=== PATIENT | female | born 1975 | race Caucasian/White ===

== ENCOUNTER → 2016-08-14 | Outpatient (CLI) | payer OTHER ==
[~2016-08-14] VITALS: Ht 157.5 cm; Wt 84.8 kg
[2016-08-14] VITALS (10 sets, daily range): BP systolic 96–142; BP diastolic 55–73
[~2016-08-14] MED LIST: CETI10TA22 PO; DASA100T PO; TRIA16.96 NS
[2016-08-14 07:49] LABS: HEMATOCRIT 18.1 % (36.0-47.0); HEMOGLOBIN 5.6 g/dL (12.0-15.5)
== END | disposition home or self-care (01) ==
LOC: OPS 06:40
PROVIDERS: ATTEND Physician Assistant Medical
DX: D64.9 Anemia, unspecified (principal); C92.10 Chronic myeloid leukemia, BCR/ABL-positive, not having achieved remission; R53.83 Other fatigue
CPT/HCPCS: 36415; 82947; 85014; 85018; 86850; 86900; 86901; 86920; P9016; 36430

== ENCOUNTER 2016-09-10 10:26 | Inpatient (IN) | payer OTHER ==
[~2016-09-10] VITALS: Ht 157.5 cm; Wt 81.8 kg
[2016-09-10] VITALS (13 sets, daily range): BP systolic 115–152; BP diastolic 54–76
[2016-09-10 12:09] LABS: BASO % 1 % (0-3); EOS % 2 % (0-3); LYMPH # 1.5 x10^3/uL (1.0-4.8); LYMPH % 32 % (24-48); MEAN CORPUSCULAR HEMOGLOBIN 27 pg (25-35); MEAN CORPUSCULAR HGB CONC 33 g/dL (31-37); MEAN CORPUSCULAR VOLUME 82 fL (79-100); MONO % 5 % (0-9); NEUT % 61 % (31-73); PLATELET COUNT 260 x10^3/uL (140-400); RED BLOOD COUNT 1.95 x10^6/uL (3.50-5.40); RED CELL DISTRIBUTION WIDTH 16.7 % (11.5-14.5); WHITE BLOOD COUNT 4.9 x10^3/uL (4.0-11.0)
[2016-09-10 12:10] LABS: HEMATOCRIT 15.9 % (36.0-47.0); HEMOGLOBIN 5.3 g/dL (12.0-15.5)
[2016-09-10] MEDS ORDERED: fentaNYL PF VIAL 100 MCG/2 ML VIAL IV PRN (12:15)
[2016-09-10] MEDS ORDERED: ONDANSETRON PF 4 MG/2 ML VIAL. IV PRN (12:15)
[2016-09-10 12:17] LABS: INR 0.9 (0.8-1.1); PROTHROMBIN TIME PATIENT 11.6 SEC (11.7-14.0)
--- NOTE | 2016-09-10 12:28 | PHYS DOC ---
Past Medical History Past Medical History: Uterine Fibroids, Other Additional Past Medical Histor: CML Past Surgical History: Other Additional Past Surgical Histo: bone marrow biopsies Alcohol Use: None Drug Use: None Adult General Chief Complaint Chief Complaint: ABNORMAL LABS HPI HPI Patient is a 41 year old female presenting to the emergency department for evaluation of anemia that was checked this morning. He follows with Dr. Castellano for her CML. Patient is being seen by a keno writer/runner for vaginal bleeding and they're considering a hysterectomy. She says that she is dizzy and gets short of breath on exertion but denies any definite pain. Review of Systems Review of Systems Constitutional: Denies fever or chills [] Eyes: Denies change in visual acuity, redness, or eye pain [] HENT: Denies nasal congestion or sore throat [] Respiratory: Denies cough. + shortness of breath [] Cardiovascular: No additional information not addressed in HPI [] GI: Denies abdominal pain, nausea, vomiting, bloody stools or diarrhea [] : Denies dysuria or hematuria [] Musculoskeletal: Denies back pain or joint pain [] Integument: Denies rash or skin lesions [] Neurologic: Denies headache, focal weakness. + sensory changes [] Current Medications Current Medications Current Medications Medications (Trade) Dose Ordered Sig/Luisa Start Time Stop Time Status Last Admin Dose Admin Fentanyl Citrate (Fentanyl 2ml Vial) 50 mcg PRN Q2HR PRN 09/10/16 12:15 09/11/16 12:14 Ondansetron HCl (Zofran) 4 mg PRN Q8HRS PRN 09/10/16 12:15 09/11/16 12:14 Allergies Allergies Allergies Coded Allergies Type Severity Reaction Last Updated Verified No Known Drug Allergies 08/14/16 No Physical Exam Physical Exam Constitutional: Well developed, well nourished, no acute distress, non-toxic appearance. [] HENT: Normocephalic, atraumatic, bilateral external ears normal, oropharynx moist, no oral exudates, nose normal. [] Eyes: PERRLA, EOMI, conjunctiva normal, no discharge. [] Neck: Normal range of motion, no tenderness, supple, no stridor. [] Cardiovascular:Heart rate tachycardic with regular rhythm, no murmur [] Lungs & Thorax: Bilateral breath sounds clear to auscultation [] Abdomen: Bowel sounds normal, soft, no tenderness, no masses, no pulsatile masses. [] Skin: Warm, dry, no erythema, no rash. [] Back: No tenderness, no CVA tenderness. [] Extremities: No tenderness, no cyanosis, no clubbing, ROM intact, no edema. [] Neurologic: Alert and oriented X 3, normal motor function, normal sensory function, no focal deficits noted. [] Current Patient Data Vital Signs Vital Signs Date Time Temp Pulse Resp B/P (MAP) Pulse Ox O2 Delivery O2 Flow Rate FiO2 09/10/16 10:58 98.5 108 24 127/60 (82) 100 Room Air 98.5 Lab Values Laboratory Tests Test 09/10/16 11:55 White Blood Count 4.9 x10^3/uL (4.0-11.0) Red Blood Count 1.95 x10^6/uL (3.50-5.40) L Hemoglobin 5.3 g/dL (12.0-15.5) *L Hematocrit 15.9 % (36.0-47.0) *L Mean Corpuscular Volume 82 fL (79-100) Mean Corpuscular Hemoglobin 27 pg (25-35) Mean Corpuscular Hemoglobin Concent 33 g/dL (31-37) Red Cell Distribution Width 16.7 % (11.5-14.5) H Platelet Count 260 x10^3/uL (140-400) Neutrophils (%) (Auto) 61 % (31-73) Lymphocytes (%) (Auto) 32 % (24-48) Monocytes (%) (Auto) 5 % (0-9) Eosinophils (%) (Auto) 2 % (0-3) Basophils (%) (Auto) 1 % (0-3) Neutrophils # (Auto) 3.0 x10^3uL (1.8-7.7) Lymphocytes # (Auto) 1.5 x10^3/uL (1.0-4.8) Monocytes # (Auto) 0.3 x10^3/uL (0.0-1.1) Eosinophils # (Auto) 0.1 x10^3/uL (0.0-0.7) Basophils # (Auto) 0.0 x10^3/uL (0.0-0.2) Prothrombin Time 11.6 SEC (11.7-14.0) L Prothrombin Time INR 0.9 (0.8-1.1) PTT 31 SEC (24-38) Laboratory Tests 09/10/16 11:55 EKG EKG [] Radiology/Procedures Radiology/Procedures [] Course & Med Decision Making Course & Med Decision Making Patient with anemia from her underlying medical condition and possibly bleeding as well so she'll be admitted for transfusion and further evaluation and treatment. Dragon Disclaimer Dragon Disclaimer This electronic medical record was generated, in whole or in part, using a voice recognition dictation system. Departure Departure Impression: Primary Impression: Symptomatic anemia Additional Impressions: Tachycardia Dizziness REAL (dyspnea on exertion) Disposition: ADMITTED INPATIENT Admitting Physician: Jovana Pierre Condition: STABLE Referrals: ANALI DUNCAN (PCP) Problem Qualifiers DELORIS BETH DO September 10, 2016 12:28
[2016-09-10 12:30] LABS: CALCIUM 8.4 mg/dL (8.5-10.1); CREATININE 0.8 mg/dL (0.6-1.0); GFR 78.7; POTASSIUM 3.5 mmol/L (3.5-5.1)
[2016-09-10 12:37] LABS: ALBUMIN 3.3 g/dL (3.4-5.0); ALBUMIN/GLOBULIN RATIO 0.8 (1.0-1.7); TOTAL BILIRUBIN 0.2 mg/dL (0.2-1.0); TOTAL PROTEIN 7.4 g/dL (6.4-8.2)
[2016-09-10 14:02] LABS: % SAT IRON 3 % (15-34); IRON,SERUM 13 ug/dL (50-170)
[2016-09-10 14:39] LABS: FOLATE 9.58 ng/ml (3.2-20.0)
--- NOTE | 2016-09-10 16:05 | PDOC1 ---
History and Physical Date of Admission Date of Admission DATE: 09/10/16 TIME: 16:00 History of Present Illness History of Present Illness Ms. Joel is a 41 year old [address] by Dr. Castellano clinic to ER, for evaluation of anemia, has CML, routine labs and Hgb much worse today. She follows with Dr. Castellano for her CML. she is more dyspneic with exertion, having trouble with stairs and feels weak. She also has more pale skin that she has noticed. prior admit for anemia and given 2 u PRBC with good improvement Past Medical History Cardiovascular: No pertinent hx Pulmonary: No pertinent hx GI: No pertinent hx Heme/Onc: Anemia NOS, Cancer Renal/: Other Family History Family History: Hypertension Social History Smoke: No ALCOHOL: none Drugs: None Current Problem List Problem List Problems Medical Problems: (1) Dizziness Status: Acute (2) REAL (dyspnea on exertion) Status: Acute (3) Symptomatic anemia Status: Acute (4) Tachycardia Status: Acute Problems: Current Medications Current Medications Current Medications Ondansetron HCl (Zofran) 4 mg PRN Q8HRS PRN IV NAUSEA/VOMITING; Start 09/10/16 at 12:15; Stop 09/11/16 at 12:14 Fentanyl Citrate (Fentanyl 2ml Vial) 50 mcg PRN Q2HR PRN IV PAIN; Start at 12:15; Stop 09/11/16 at 12:14 Active Scripts Active Reported Nasal Allergy (Triamcinolone Acetonide) 16.9 Ml [facility] 16.9 Ml NS Zyrtec (Cetirizine Hcl) 10 Mg Tablet 1 Tab PO DAILY Sprycel (Dasatinib) 100 Mg Tablet 100 Mg PO DAILY Allergies Allergies: Coded Allergies: No Known Drug Allergies (Unverified , 08/14/16) ROS General: No: Chills, Night Sweats, Fatigue, Malaise, Appetite, Other PSYCHOLOGICAL ROS: No: Anxiety, Behavioral Disorder, Concentration difficultie , Decreased libido, Depression, Disorientation, Hallucinations, Hostility, Irritablity, Memory difficulties, Mood Swings, Obsessive thoughts, Physical abuse, Sexual abuse, Sleep disturbances, Suicidal ideation, Other HEENT: No: Heacaches, Visual Changes, Hearing change, Nasal congestion, Nasal discharge, Oral lesions, Sinus pain, Sore Throat, Epistaxis, Sneezing, Snoring, Tinnitus, Vertigo, Vocal changes, Other Respiratory: No: Cough, Hemoptysis, Orthopnea, Pleuritic Pain, Shortness of breath, SOB with excertion, Sputum Changes, Stridor, Tachypnea, Wheezing, Other Cardiovascular: No Chest Pain, No Palpitations, No Orthopnea, No Paroxysmal Noc. Dyspnea, No Edema, No Lt Headedness, No Other Genitourinary: No Dysuria, No Frequency, No Incontinence, No Hematuria, No Retention, No Discharge, No Urgency, No Pain, No Flank Pain, No Other, No , No , No , No , No , No , No Musculoskeletal: No Gait Disturbance, No Joint Pain, No Joint Stiffness, No Joint Swelling, No Muscle Pain, No Muscular Weakness, No Pain In:, No Swelling In:, No Other Neurological: No Behavorial Changes, No Bowel/Bladder ControlChng, No Confusion , No Dizziness, No Gait Disturbance, No Headaches, No Impaired Coord/balance, No Memory Loss, No Numbness/Tingling, No Seizures, No Speech Problems, No Tremors, No Visual Changes, No Weakness, No Other Skin: No Dry Skin, No Eczema, No Hair Changes, No Lumps, No Mole Changes, No Mottling, No Nail Changes, No Pruritus, No Rash, No Skin Lesion Changes, No Other, No Acne Physical Exam General: Alert, Oriented X3, Cooperative, No acute distress HEENT: Atraumatic, PERRLA, EOMI, Mucous membr. moist/pink Lungs: Clear to auscultation, Normal air movement Heart: no gallops, no murmurs Abdomen: Normal bowel sounds, Soft Rectal Exam: not examined Extremities: No clubbing Skin: Other (pale) Neuro: Normal tone, Sensation intact Psych/Mental Status: Mood NL Vitals Vitals Vital Signs Date Time Temp Pulse Resp B/P (MAP) Pulse Ox O2 Delivery O2 Flow Rate FiO2 09/10/16 15:12 98.2 98 17 133/68 (89) 98 Room Air 98.2 Labs Labs Laboratory Tests Test 09/10/16 11:55 White Blood Count 4.9 x10^3/uL (4.0-11.0) Red Blood Count 1.95 x10^6/uL (3.50-5.40) Hemoglobin 5.3 g/dL (12.0-15.5) Hematocrit 15.9 % (36.0-47.0) Mean Corpuscular Volume 82 fL (79-100) Mean Corpuscular Hemoglobin 27 pg (25-35) Mean Corpuscular Hemoglobin Concent 33 g/dL (31-37) Red Cell Distribution Width 16.7 % (11.5-14.5) Platelet Count 260 x10^3/uL (140-400) Neutrophils (%) (Auto) 61 % (31-73) Lymphocytes (%) (Auto) 32 % (24-48) Monocytes (%) (Auto) 5 % (0-9) Eosinophils (%) (Auto) 2 % (0-3) Basophils (%) (Auto) 1 % (0-3) Neutrophils # (Auto) 3.0 x10^3uL (1.8-7.7) Lymphocytes # (Auto) 1.5 x10^3/uL (1.0-4.8) Monocytes # (Auto) 0.3 x10^3/uL (0.0-1.1) Eosinophils # (Auto) 0.1 x10^3/uL (0.0-0.7) Basophils # (Auto) 0.0 x10^3/uL (0.0-0.2) Prothrombin Time 11.6 SEC (11.7-14.0) Prothromb Time International Ratio 0.9 (0.8-1.1) Activated Partial Thromboplast Time 31 SEC (24-38) Sodium Level 140 mmol/L (136-145) Potassium Level 3.5 mmol/L (3.5-5.1) Chloride Level 106 mmol/L (98-107) Carbon Dioxide Level 23 mmol/L (21-32) Anion Gap 11 (6-14) Blood Urea Nitrogen 5 mg/dL (7-20) Creatinine 0.8 mg/dL (0.6-1.0) Estimated GFR (Cockcroft-Gault) 78.7 BUN/Creatinine Ratio 6 (6-20) Glucose Level 106 mg/dL (70-99) Calcium Level 8.4 mg/dL (8.5-10.1) Iron Level 13 ug/dL (50-170) Total Iron Binding Capacity 450 ug/dL (250-450) Iron Saturation 3 % (15-34) Ferritin 6 ng/mL (8-252) Total Bilirubin 0.2 mg/dL (0.2-1.0) Aspartate Amino Transf (AST/SGOT) 20 U/L (15-37) Alanine Aminotransferase (ALT/SGPT) 18 U/L (14-59) Alkaline Phosphatase 58 U/L (46-116) Total Protein 7.4 g/dL (6.4-8.2) Albumin 3.3 g/dL (3.4-5.0) Albumin/Globulin Ratio 0.8 (1.0-1.7) Vitamin B12 Level 244 pg/mL (247-911) Serum Folate 9.58 ng/ml (3.2-20.0) Thyroid Stimulating Hormone (TSH) 3.421 uIU/mL (0.358-3.74) Laboratory Tests Test 09/10/16 11:55 White Blood Count 4.9 x10^3/uL (4.0-11.0) Red Blood Count 1.95 x10^6/uL (3.50-5.40) Hemoglobin 5.3 g/dL (12.0-15.5) Hematocrit 15.9 % (36.0-47.0) Mean Corpuscular Volume 82 fL (79-100) Mean Corpuscular Hemoglobin 27 pg (25-35) Mean Corpuscular Hemoglobin Concent 33 g/dL (31-37) Red Cell Distribution Width 16.7 % (11.5-14.5) Platelet Count 260 x10^3/uL (140-400) Neutrophils (%) (Auto) 61 % (31-73) Lymphocytes (%) (Auto) 32 % (24-48) Monocytes (%) (Auto) 5 % (0-9) Eosinophils (%) (Auto) 2 % (0-3) Basophils (%) (Auto) 1 % (0-3) Neutrophils # (Auto) 3.0 x10^3uL (1.8-7.7) Lymphocytes # (Auto) 1.5 x10^3/uL (1.0-4.8) Monocytes # (Auto) 0.3 x10^3/uL (0.0-1.1) Eosinophils # (Auto) 0.1 x10^3/uL (0.0-0.7) Basophils # (Auto) 0.0 x10^3/uL (0.0-0.2) Prothrombin Time 11.6 SEC (11.7-14.0) Prothromb Time International Ratio 0.9 (0.8-1.1) Activated Partial Thromboplast Time 31 SEC (24-38) Sodium Level 140 mmol/L (136-145) Potassium Level 3.5 mmol/L (3.5-5.1) Chloride Level 106 mmol/L (98-107) Carbon Dioxide Level 23 mmol/L (21-32) Anion Gap 11 (6-14) Blood Urea Nitrogen 5 mg/dL (7-20) Creatinine 0.8 mg/dL (0.6-1.0) Estimated GFR (Cockcroft-Gault) 78.7 BUN/Creatinine Ratio 6 (6-20) Glucose Level 106 mg/dL (70-99) Calcium Level 8.4 mg/dL (8.5-10.1) Iron Level 13 ug/dL (50-170) Total Iron Binding Capacity 450 ug/dL (250-450) Iron Saturation 3 % (15-34) Ferritin 6 ng/mL (8-252) Total Bilirubin 0.2 mg/dL (0.2-1.0) Aspartate Amino Transf (AST/SGOT) 20 U/L (15-37) Alanine Aminotransferase (ALT/SGPT) 18 U/L (14-59) Alkaline Phosphatase 58 U/L (46-116) Total Protein 7.4 g/dL (6.4-8.2) Albumin 3.3 g/dL (3.4-5.0) Albumin/Globulin Ratio 0.8 (1.0-1.7) Vitamin B12 Level 244 pg/mL (247-911) Serum Folate 9.58 ng/ml (3.2-20.0) Thyroid Stimulating Hormone (TSH) 3.421 uIU/mL (0.358-3.74) VTE Prophylaxis Ordered VTE Prophylaxis Devices: No VTE Pharmacological Prophylaxi: No Assessment/Plan Assessment/Plan symptomatic anemia Hgb 5.3 today CML uterine fibroids plan 2 u PRBC the, recheck, consider third, goal > 8 she reports she feels well near hgb 10 consult Shipping And Receiving Associate, consider surg intervention for heavy menses VEL NAVAS MD September 10, 2016 16:05
--- NOTE | 2016-09-10 16:40 | PDOC ---
Provider Note Provider Note Hem-Onc consult 1. CML - continue sprycel 2. Iron def anemia due to menorrhagia- ordered venofer. Agree to transfuse till Hb >8. 3. B12 def- ordered B12. see dictation [id number] LOS OROZCO MD September 10, 2016 16:40
[2016-09-10] MEDS ORDERED: IRON SUCROSE COMPLEX 500 MG in IV NORMAL SALINE 250ML 250 ML IV ONE (17:00)
[2016-09-10] MEDS: CYANOCOBALAMIN (VITAMIN B-12) 1,000 MCG/ML VIAL IM SCH (21:46)
--- NOTE | 2016-09-11 02:42 | CONS ---
DATE OF CONSULTATION: 09/10/2016 REQUESTING PHYSICIAN: Jovana Pierre MD REASON FOR CONSULTATION: CML and severe anemia. HISTORY OF PRESENT ILLNESS: The patient is a 41-year-old female who was diagnosed with CML on 01/06/2013. She was started on Gleevec on 01/29/2013 and she had nausea and vomiting on a chronic basis and hence this was discontinued and Sprycel was initiated on 01/20/2015 at 100 mg daily and her GI symptoms resolved. She has been having heavy menstrual cycles and she has been seen wash rack operator Dr. Sonali Dias. She received blood transfusion in 07/2016. She had a routine CBC done on 09/10/2016 that revealed hemoglobin of 5.3 and hence she was advised to go to the hospital for further evaluation. She reports menorrhagia. No hematemesis, melena or hematochezia. No hemoptysis or hematuria. No nose bleeds or gum bleeding. No history of easy bruisability. No loss of weight or loss of appetite. She does feel dizzy and lightheaded. She has noticed worsening fatigue and exertional dyspnea, but no chest pain. PAST MEDICAL HISTORY: CML, iron deficiency anemia, and fibroid uterus. FAMILY HISTORY: Positive for hypertension. SOCIAL HISTORY: No smoking or alcohol abuse. REVIEW OF SYSTEMS: A 14-point review of systems was performed. Pertinent positives are mentioned in the history of present illness. Rest of the system review is negative. PHYSICAL EXAMINATION: GENERAL APPEARANCE: The patient is a 41-year-old female who is in no acute cardiorespiratory distress. VITAL SIGNS: Blood pressure 133/68, temperature 98.2. HEENT: Atraumatic, normocephalic. Eyes: No icterus. NECK: Supple. CHEST: Bilaterally symmetrical. No crepitations or rhonchi heard. HEART: S1, S2 normal. ABDOMEN: Soft, nontender. CENTRAL NERVOUS SYSTEM: No focal deficits. LYMPHATICS: No lymphadenopathy. SKIN: No rashes. PSYCHOLOGIC: Mood and affect are appropriate. MUSCULOSKELETAL: No joint effusions. LABORATORY DATA: WBC 4.9, hemoglobin 5.3, and platelet count 260. MCV 82, calcium 8.4, iron 13, TIBC 450, iron saturation 3, ferritin 6 on 09/10/2016, B12 244 on 09/10/2016. IMPRESSION AND PLAN: 1. Chronic myeloid leukemia; she is on Sprycel 100 mg a day and she has responded very well, continue Sprycel 100 mg a day. 2. Anemia, secondary to iron deficiency anemia due to menorrhagia from fibroid uterus. I will start on Venofer. I will give her one dose 500 mg intravenous today for management of iron deficiency anemia. I have advised her to consult her wash rack operator for management of fibroid uterus. I agreed to transfuse 2 units of PRBCs and check CBC after that and if still below 8, then I would proceed with third unit of transfusion. 3. B12 deficiency, B12 only 244 on 09/10/2016. I will give her a dose of vitamin B12 1000 mcg intramuscular. I discussed with the registered nurse. LOS OROZCO MD DR: SUSIE/delmer JOB#: [id number] / [id number] VIGNESH
[2016-09-11 03:00] VITALS: BP 112/68
[2016-09-11 04:13] LABS: BASO % 1 % (0-3); EOS % 2 % (0-3); HEMATOCRIT 25.7 % (36.0-47.0); HEMOGLOBIN 8.7 g/dL (12.0-15.5); LYMPH % 29 % (24-48); MEAN CORPUSCULAR HEMOGLOBIN 27 pg (25-35); MEAN CORPUSCULAR HGB CONC 34 g/dL (31-37); MEAN CORPUSCULAR VOLUME 80 fL (79-100); MONO % 4 % (0-9); NEUT % 64 % (31-73); PLATELET COUNT 236 x10^3/uL (140-400); RED CELL DISTRIBUTION WIDTH 16.4 % (11.5-14.5); WHITE BLOOD COUNT 6.9 x10^3/uL (4.0-11.0)
[2016-09-11 04:43] LABS: CALCIUM 8.2 mg/dL (8.5-10.1); CREATININE 0.8 mg/dL (0.6-1.0); GFR 78.7; POTASSIUM 3.9 mmol/L (3.5-5.1)
--- NOTE | 2016-09-11 06:00 | ACF ---
Admission Forms Criteria ANEMIA Clinical Indications for Inpatient Care (Place 'X' for any and all applicable criteria) Ongoing inpatient care may be needed for anemia with 1 or more of the following (1)(2)(3)(4)(18)(37): [X]I. Severe signs or symptoms unresponsive to transfusion or volume replacement, including ANY ONE of the following: []a) Heart failure []b) Chest pain []c) Myocardial ischemia [X]d) Exertional dyspnea []e) Syncope []f) Acute peripheral ischemia (eg, pulseless, cool, mottled, or cyanotic extremity) []g) Other severe signs or symptoms []II. Cognitive impairment []III. Active hemorrhage []IV.Active hemolysis with rapidly progressive anemia []V. Hemodynamic instability Extended stay beyond goal length of stay for the primary condition may be needed until ALL of the following are present (1)(2)(3)(4): []a) Hemodynamic stability []b) Any active blood loss controlled []c) Severe signs or symptoms resolved []d) Mental status normal or at baseline []e) Stable hemoglobin after transfusion []f) Any underlying disorder or complications of treatment controlled The original [employer] content created by [employer] has been revised. The portions of the content which have been revised are identified through the use of italic text or in bold, and [facility] has neither reviewed nor approved the modified material. All other unmodified content is copyright [employer]. Please see references footnoted in the original [facility] edition 2016 Admission Criteria Met?: Yes MYRNA BRAMBILA September 11, 2016 06:00
[2016-09-11] MEDS ORDERED: NAPROXEN 500 MG TABLET PO PRN (06:45)
[2016-09-11 07:00] VITALS: BP 115/59
[2016-09-11] MEDS: CYANOCOBALAMIN (VITAMIN B-12) 1,000 MCG/ML VIAL IM SCH (08:14)
--- NOTE | 2016-09-11 08:41 | PDOC ---
PROGRESS NOTES Subjective Subjective c/c - f/u of CML and anemia ROS - fatigue better Objective Objective Vital Signs Date Time Temp Pulse Resp B/P (MAP) Pulse Ox O2 Delivery O2 Flow Rate FiO2 09/11/16 07:00 97.9 86 18 115/59 (77) 98 Room Air 97.9 Intake and Output 09/11/16 07:00 Intake Total 1563 ml Balance 1563 ml Intake Oral 240 ml Blood Product IV Normal Saline Flush 1323 ml # Voids 5 Physical Exam Heart: Normal S1, Normal S2 General: Alert, Oriented X3 Lungs: Clear to auscultation Neuro: Normal speech Psych/Mental Status: Mental status NL Assessment Assessment Problems Medical Problems: (1) Dizziness Status: Acute (2) REAL (dyspnea on exertion) Status: Acute (3) Symptomatic anemia Status: Acute (4) Tachycardia Status: Acute IMPRESSION AND PLAN: 1. Chronic myeloid leukemia; she is on Sprycel 100 mg a day and she has responded very well, continue Sprycel 100 mg a day. 2. Anemia, secondary to iron deficiency anemia due to menorrhagia from fibroid uterus. s/p Venofer 500 mg intravenous 09/10/16 for management of iron deficiency anemia. I have advised her to consult her stone rigger for management of fibroid uterus. s/p 2 units of PRBCs. Hb better at 8.7, hence no need for third unit of transfusion. 3. B12 deficiency, B12 only 244 on 09/10/2016. s/p vitamin B12 1000 mcg intramuscular 09/10/16, plan second dose 09/11/16 and then switch to oral B12 1000 mcg daily.. Comment Review of Relevant I have reviewed the following items laya (where applicable) has been applied. Labs Laboratory Tests Test 09/10/16 11:55 09/11/16 03:55 White Blood Count 4.9 x10^3/uL (4.0-11.0) 6.9 x10^3/uL (4.0-11.0) Red Blood Count 1.95 x10^6/uL (3.50-5.40) 3.20 x10^6/uL (3.50-5.40) Hemoglobin 5.3 g/dL (12.0-15.5) 8.7 g/dL (12.0-15.5) Hematocrit 15.9 % (36.0-47.0) 25.7 % (36.0-47.0) Mean Corpuscular Volume 82 fL (79-100) 80 fL (79-100) Mean Corpuscular Hemoglobin 27 pg (25-35) 27 pg (25-35) Mean Corpuscular Hemoglobin Concent 33 g/dL (31-37) 34 g/dL (31-37) Red Cell Distribution Width 16.7 % (11.5-14.5) 16.4 % (11.5-14.5) Platelet Count 260 x10^3/uL (140-400) 236 x10^3/uL (140-400) Neutrophils (%) (Auto) 61 % (31-73) 64 % (31-73) Lymphocytes (%) (Auto) 32 % (24-48) 29 % (24-48) Monocytes (%) (Auto) 5 % (0-9) 4 % (0-9) Eosinophils (%) (Auto) 2 % (0-3) 2 % (0-3) Basophils (%) (Auto) 1 % (0-3) 1 % (0-3) Neutrophils # (Auto) 3.0 x10^3uL (1.8-7.7) 4.4 x10^3uL (1.8-7.7) Lymphocytes # (Auto) 1.5 x10^3/uL (1.0-4.8) 2.0 x10^3/uL (1.0-4.8) Monocytes # (Auto) 0.3 x10^3/uL (0.0-1.1) 0.3 x10^3/uL (0.0-1.1) Eosinophils # (Auto) 0.1 x10^3/uL (0.0-0.7) 0.1 x10^3/uL (0.0-0.7) Basophils # (Auto) 0.0 x10^3/uL (0.0-0.2) 0.0 x10^3/uL (0.0-0.2) Prothrombin Time 11.6 SEC (11.7-14.0) Prothromb Time International Ratio 0.9 (0.8-1.1) Activated Partial Thromboplast Time 31 SEC (24-38) Sodium Level 140 mmol/L (136-145) 141 mmol/L (136-145) Potassium Level 3.5 mmol/L (3.5-5.1) 3.9 mmol/L (3.5-5.1) Chloride Level 106 mmol/L (98-107) 108 mmol/L (98-107) Carbon Dioxide Level 23 mmol/L (21-32) 21 mmol/L (21-32) Anion Gap 11 (6-14) 12 (6-14) Blood Urea Nitrogen 5 mg/dL (7-20) 8 mg/dL (7-20) Creatinine 0.8 mg/dL (0.6-1.0) 0.8 mg/dL (0.6-1.0) Estimated GFR (Cockcroft-Gault) 78.7 78.7 BUN/Creatinine Ratio 6 (6-20) Glucose Level 106 mg/dL (70-99) 110 mg/dL (70-99) Calcium Level 8.4 mg/dL (8.5-10.1) 8.2 mg/dL (8.5-10.1) Iron Level 13 ug/dL (50-170) Total Iron Binding Capacity 450 ug/dL (250-450) Iron Saturation 3 % (15-34) Ferritin 6 ng/mL (8-252) Total Bilirubin 0.2 mg/dL (0.2-1.0) Aspartate Amino Transf (AST/SGOT) 20 U/L (15-37) Alanine Aminotransferase (ALT/SGPT) 18 U/L (14-59) Alkaline Phosphatase 58 U/L (46-116) Total Protein 7.4 g/dL (6.4-8.2) Albumin 3.3 g/dL (3.4-5.0) Albumin/Globulin Ratio 0.8 (1.0-1.7) Vitamin B12 Level 244 pg/mL (247-911) Serum Folate 9.58 ng/ml (3.2-20.0) Thyroid Stimulating Hormone (TSH) 3.421 uIU/mL (0.358-3.74) Laboratory Tests Test 09/10/16 11:55 09/11/16 03:55 White Blood Count 4.9 x10^3/uL (4.0-11.0) 6.9 x10^3/uL (4.0-11.0) Red Blood Count 1.95 x10^6/uL (3.50-5.40) 3.20 x10^6/uL (3.50-5.40) Hemoglobin 5.3 g/dL (12.0-15.5) 8.7 g/dL (12.0-15.5) Hematocrit 15.9 % (36.0-47.0) 25.7 % (36.0-47.0) Mean Corpuscular Volume 82 fL (79-100) 80 fL (79-100) Mean Corpuscular Hemoglobin 27 pg (25-35) 27 pg (25-35) Mean Corpuscular Hemoglobin Concent 33 g/dL (31-37) 34 g/dL (31-37) Red Cell Distribution Width 16.7 % (11.5-14.5) 16.4 % (11.5-14.5) Platelet Count 260 x10^3/uL (140-400) 236 x10^3/uL (140-400) Neutrophils (%) (Auto) 61 % (31-73) 64 % (31-73) Lymphocytes (%) (Auto) 32 % (24-48) 29 % (24-48) Monocytes (%) (Auto) 5 % (0-9) 4 % (0-9) Eosinophils (%) (Auto) 2 % (0-3) 2 % (0-3) Basophils (%) (Auto) 1 % (0-3) 1 % (0-3) Neutrophils # (Auto) 3.0 x10^3uL (1.8-7.7) 4.4 x10^3uL (1.8-7.7) Lymphocytes # (Auto) 1.5 x10^3/uL (1.0-4.8) 2.0 x10^3/uL (1.0-4.8) Monocytes # (Auto) 0.3 x10^3/uL (0.0-1.1) 0.3 x10^3/uL (0.0-1.1) Eosinophils # (Auto) 0.1 x10^3/uL (0.0-0.7) 0.1 x10^3/uL (0.0-0.7) Basophils # (Auto) 0.0 x10^3/uL (0.0-0.2) 0.0 x10^3/uL (0.0-0.2) Prothrombin Time 11.6 SEC (11.7-14.0) Prothromb Time International Ratio 0.9 (0.8-1.1) Activated Partial Thromboplast Time 31 SEC (24-38) Sodium Level 140 mmol/L (136-145) 141 mmol/L (136-145) Potassium Level 3.5 mmol/L (3.5-5.1) 3.9 mmol/L (3.5-5.1) Chloride Level 106 mmol/L (98-107) 108 mmol/L (98-107) Carbon Dioxide Level 23 mmol/L (21-32) 21 mmol/L (21-32) Anion Gap 11 (6-14) 12 (6-14) Blood Urea Nitrogen 5 mg/dL (7-20) 8 mg/dL (7-20) Creatinine 0.8 mg/dL (0.6-1.0) 0.8 mg/dL (0.6-1.0) Estimated GFR (Cockcroft-Gault) 78.7 78.7 BUN/Creatinine Ratio 6 (6-20) Glucose Level 106 mg/dL (70-99) 110 mg/dL (70-99) Calcium Level 8.4 mg/dL (8.5-10.1) 8.2 mg/dL (8.5-10.1) Iron Level 13 ug/dL (50-170) Total Iron Binding Capacity 450 ug/dL (250-450) Iron Saturation 3 % (15-34) Ferritin 6 ng/mL (8-252) Total Bilirubin 0.2 mg/dL (0.2-1.0) Aspartate Amino Transf (AST/SGOT) 20 U/L (15-37) Alanine Aminotransferase (ALT/SGPT) 18 U/L (14-59) Alkaline Phosphatase 58 U/L (46-116) Total Protein 7.4 g/dL (6.4-8.2) Albumin 3.3 g/dL (3.4-5.0) Albumin/Globulin Ratio 0.8 (1.0-1.7) Vitamin B12 Level 244 pg/mL (247-911) Serum Folate 9.58 ng/ml (3.2-20.0) Thyroid Stimulating Hormone (TSH) 3.421 uIU/mL (0.358-3.74) Medications Current Medications Ondansetron HCl (Zofran) 4 mg PRN Q8HRS PRN IV NAUSEA/VOMITING; Start 09/10/16 at 12:15; Stop 09/11/16 at 12:14 Fentanyl Citrate (Fentanyl 2ml Vial) 50 mcg PRN Q2HR PRN IV PAIN; Start at 12:15; Stop 09/11/16 at 12:14 Iron Sucrose 500 mg/Sodium Chloride 275 ml @ 78.571 mls/ hr 1X ONCE IV Last administered on 09/10/16 22:23; Start 09/10/16 at 17:00; Stop 09/10/16 at 20:29 ; Status DC Cyanocobalamin (Vitamin B-12) 1,000 mcg DAILY IM Last administered on 08:14; Start 09/10/16 at 16:30; Stop 09/11/16 at 16:29 Naproxen (Naprosyn) 500 mg PRN BID PRN PO MODERATE PAIN Last administered on 08:13; Start 09/11/16 at 06:45 Active Scripts Active Reported Nasal Allergy (Triamcinolone Acetonide) 16.9 Ml [place] 16.9 Ml NS Zyrtec (Cetirizine Hcl) 10 Mg Tablet 1 Tab PO DAILY Sprycel (Dasatinib) 100 Mg Tablet 100 Mg PO DAILY Vitals/I & O Vital Sign - Last 24 Hours 09/10/16 09/10/16 09/10/16 09/10/16 10:58 11:27 11:57 12:27 Temp 98.5 98.5 Pulse 108 104 106 100 Resp B/P (MAP) 127/60 (82) 125/59 (81) 130/59 (82) 123/58 (79) Pulse Ox 100 98 97 100 O2 Delivery Room Air Room Air Room Air Room Air 09/10/16 09/10/16 09/10/16 09/10/16 14:19 14:35 14:35 15:12 Temp 97.7 97.9 97.9 98.2 97.7 97.9 97.9 98.2 Pulse 102 98 102 98 Resp B/P (MAP) 115/54 118/64 115/54 (74) 133/68 (89) Pulse Ox 98 O2 Delivery Room Air Room Air 09/10/16 09/10/16 09/10/16 09/10/16 15:35 16:35 17:30 18:43 Temp 98.0 97.8 97.9 98.2 98.0 97.8 97.9 98.2 Pulse 94 93 94 94 Resp 20 20 20 20 B/P (MAP) 128/68 126/65 128/60 128/60 09/10/16 09/10/16 09/10/16 09/10/16 18:59 19:00 20:00 20:00 Temp 98.0 97.7 97.7 98.0 97.7 97.7 Pulse 91 98 98 Resp 20 19 20 B/P (MAP) 122/61 152/71 (98) 152/71 Pulse Ox 97 O2 Delivery Room Air Room Air 09/10/16 09/10/16 09/10/16 09/11/16 21:00 22:50 23:50 03:00 Temp 97.9 98.1 97.9 98.1 Pulse 83 80 88 Resp 16 19 B/P (MAP) 130/76 119/64 (82) 117/65 (82) 112/68 (83) Pulse Ox 95 O2 Delivery Room Air Room Air 09/11/16 07:00 Temp 97.9 97.9 Pulse 86 Resp 18 B/P (MAP) 115/59 (77) Pulse Ox 98 O2 Delivery Room Air Intake and Output 09/10/16 09/10/16 09/11/16 15:00 23:00 07:00 Intake Total 315 ml 1248 ml Balance 315 ml 1248 ml LOS OROZCO MD September 11, 2016 08:41
--- NOTE | 2016-09-11 09:43 | PDOC2 ---
CONSULT Date of Consult Date of Consult DATE: 09/11/16 TIME: 09:36 Reason for Consult Reason for Consult: menorrhagia and subsequent anemia Referring Physician Referring Physician: Gray Identification/Chief Complaint Chief Complaint Pt has bleed down to anemia and presented with hgb of 5 yesterday. Pt was having SOB and increased HR Source Source: Patient History of Present Illness Reason for Visit: Pt was last seen in my office in December. Has been having intermittent problems with menorrhagia. Was seen for US on 08/27/16 and it was noted to show 10cm uterus without fibroids and small ovarian cysts. Pt states she has had heavy bleeding the last couple of months and was coming in for appt tomorrow in office. She is currently on her period, but it is slowed almost to a stop. Feels much better after transfusion. Past Medical History Past Medical History See hx in chart. Pt has CML Cardiovascular: No pertinent hx Pulmonary: No pertinent hx GI: No pertinent hx Heme/Onc: Anemia NOS, Cancer, Iron deficiency Anemia Renal/: Other (menorrhagia, metrorrhagia) Family History Family History non contributory for this problem Family History: Hypertension Social History No ALCOHOL: none Drugs: None Current Problem List Problem List Problems Medical Problems: (1) Dizziness Status: Acute (2) REAL (dyspnea on exertion) Status: Acute (3) Symptomatic anemia Status: Acute (4) Tachycardia Status: Acute Current Medications Current Medications Current Medications Ondansetron HCl (Zofran) 4 mg PRN Q8HRS PRN IV NAUSEA/VOMITING; Start 09/10/16 at 12:15; Stop 09/11/16 at 12:14 Fentanyl Citrate (Fentanyl 2ml Vial) 50 mcg PRN Q2HR PRN IV PAIN; Start at 12:15; Stop 09/11/16 at 12:14 Iron Sucrose 500 mg/Sodium Chloride 275 ml @ 78.571 mls/ hr 1X ONCE IV Last administered on 09/10/16t 22:23; Start 09/10/16 at 17:00; Stop 09/10/16 at 20:29 ; Status DC Cyanocobalamin (Vitamin B-12) 1,000 mcg DAILY IM Last administered on 08:14; Start 09/10/16 at 16:30; Stop 09/11/16 at 16:29 Naproxen (Naprosyn) 500 mg PRN BID PRN PO MODERATE PAIN Last administered on t 08:13; Start 09/11/16 at 06:45 Active Scripts Active Reported Nasal Allergy (Triamcinolone Acetonide) 16.9 Ml [place] 16.9 Ml NS Zyrtec (Cetirizine Hcl) 10 Mg Tablet 1 Tab PO DAILY Sprycel (Dasatinib) 100 Mg Tablet 100 Mg PO DAILY Allergies Allergies: Coded Allergies: No Known Drug Allergies (Unverified , 08/14/16) ROS Genitourinary: YES Other (menorrhagia) Physical Exam General: Alert, Oriented X3, Cooperative, No acute distress Abdomen: Soft, No tenderness Extremities: No clubbing, No cyanosis, No edema Psych/Mental Status: Mental status NL Vitals VITALS Vital Signs Date Time Temp Pulse Resp B/P (MAP) Pulse Ox O2 Delivery O2 Flow Rate FiO2 09/11/16 07:00 97.9 86 18 115/59 (77) 98 Room Air 97.9 Labs Labs Laboratory Tests Test 09/10/16 11:55 09/11/16 03:55 White Blood Count 4.9 x10^3/uL (4.0-11.0) 6.9 x10^3/uL (4.0-11.0) Red Blood Count 1.95 x10^6/uL (3.50-5.40) 3.20 x10^6/uL (3.50-5.40) Hemoglobin 5.3 g/dL (12.0-15.5) 8.7 g/dL (12.0-15.5) Hematocrit 15.9 % (36.0-47.0) 25.7 % (36.0-47.0) Mean Corpuscular Volume 82 fL (79-100) 80 fL (79-100) Mean Corpuscular Hemoglobin 27 pg (25-35) 27 pg (25-35) Mean Corpuscular Hemoglobin Concent 33 g/dL (31-37) 34 g/dL (31-37) Red Cell Distribution Width 16.7 % (11.5-14.5) 16.4 % (11.5-14.5) Platelet Count 260 x10^3/uL (140-400) 236 x10^3/uL (140-400) Neutrophils (%) (Auto) 61 % (31-73) 64 % (31-73) Lymphocytes (%) (Auto) 32 % (24-48) 29 % (24-48) Monocytes (%) (Auto) 5 % (0-9) 4 % (0-9) Eosinophils (%) (Auto) 2 % (0-3) 2 % (0-3) Basophils (%) (Auto) 1 % (0-3) 1 % (0-3) Neutrophils # (Auto) 3.0 x10^3uL (1.8-7.7) 4.4 x10^3uL (1.8-7.7) Lymphocytes # (Auto) 1.5 x10^3/uL (1.0-4.8) 2.0 x10^3/uL (1.0-4.8) Monocytes # (Auto) 0.3 x10^3/uL (0.0-1.1) 0.3 x10^3/uL (0.0-1.1) Eosinophils # (Auto) 0.1 x10^3/uL (0.0-0.7) 0.1 x10^3/uL (0.0-0.7) Basophils # (Auto) 0.0 x10^3/uL (0.0-0.2) 0.0 x10^3/uL (0.0-0.2) Prothrombin Time 11.6 SEC (11.7-14.0) Prothromb Time International Ratio 0.9 (0.8-1.1) Activated Partial Thromboplast Time 31 SEC (24-38) Sodium Level 140 mmol/L (136-145) 141 mmol/L (136-145) Potassium Level 3.5 mmol/L (3.5-5.1) 3.9 mmol/L (3.5-5.1) Chloride Level 106 mmol/L (98-107) 108 mmol/L (98-107) Carbon Dioxide Level 23 mmol/L (21-32) 21 mmol/L (21-32) Anion Gap 11 (6-14) 12 (6-14) Blood Urea Nitrogen 5 mg/dL (7-20) 8 mg/dL (7-20) Creatinine 0.8 mg/dL (0.6-1.0) 0.8 mg/dL (0.6-1.0) Estimated GFR (Cockcroft-Gault) 78.7 78.7 BUN/Creatinine Ratio 6 (6-20) Glucose Level 106 mg/dL (70-99) 110 mg/dL (70-99) Calcium Level 8.4 mg/dL (8.5-10.1) 8.2 mg/dL (8.5-10.1) Iron Level 13 ug/dL (50-170) Total Iron Binding Capacity 450 ug/dL (250-450) Iron Saturation 3 % (15-34) Ferritin 6 ng/mL (8-252) Total Bilirubin 0.2 mg/dL (0.2-1.0) Aspartate Amino Transf (AST/SGOT) 20 U/L (15-37) Alanine Aminotransferase (ALT/SGPT) 18 U/L (14-59) Alkaline Phosphatase 58 U/L (46-116) Total Protein 7.4 g/dL (6.4-8.2) Albumin 3.3 g/dL (3.4-5.0) Albumin/Globulin Ratio 0.8 (1.0-1.7) Vitamin B12 Level 244 pg/mL (247-911) Serum Folate 9.58 ng/ml (3.2-20.0) Thyroid Stimulating Hormone (TSH) 3.421 uIU/mL (0.358-3.74) Laboratory Tests Test 09/10/16 11:55 09/11/16 03:55 White Blood Count 4.9 x10^3/uL (4.0-11.0) 6.9 x10^3/uL (4.0-11.0) Red Blood Count 1.95 x10^6/uL (3.50-5.40) 3.20 x10^6/uL (3.50-5.40) Hemoglobin 5.3 g/dL (12.0-15.5) 8.7 g/dL (12.0-15.5) Hematocrit 15.9 % (36.0-47.0) 25.7 % (36.0-47.0) Mean Corpuscular Volume 82 fL (79-100) 80 fL (79-100) Mean Corpuscular Hemoglobin 27 pg (25-35) 27 pg (25-35) Mean Corpuscular Hemoglobin Concent 33 g/dL (31-37) 34 g/dL (31-37) Red Cell Distribution Width 16.7 % (11.5-14.5) 16.4 % (11.5-14.5) Platelet Count 260 x10^3/uL (140-400) 236 x10^3/uL (140-400) Neutrophils (%) (Auto) 61 % (31-73) 64 % (31-73) Lymphocytes (%) (Auto) 32 % (24-48) 29 % (24-48) Monocytes (%) (Auto) 5 % (0-9) 4 % (0-9) Eosinophils (%) (Auto) 2 % (0-3) 2 % (0-3) Basophils (%) (Auto) 1 % (0-3) 1 % (0-3) Neutrophils # (Auto) 3.0 x10^3uL (1.8-7.7) 4.4 x10^3uL (1.8-7.7) Lymphocytes # (Auto) 1.5 x10^3/uL (1.0-4.8) 2.0 x10^3/uL (1.0-4.8) Monocytes # (Auto) 0.3 x10^3/uL (0.0-1.1) 0.3 x10^3/uL (0.0-1.1) Eosinophils # (Auto) 0.1 x10^3/uL (0.0-0.7) 0.1 x10^3/uL (0.0-0.7) Basophils # (Auto) 0.0 x10^3/uL (0.0-0.2) 0.0 x10^3/uL (0.0-0.2) Prothrombin Time 11.6 SEC (11.7-14.0) Prothromb Time International Ratio 0.9 (0.8-1.1) Activated Partial Thromboplast Time 31 SEC (24-38) Sodium Level 140 mmol/L (136-145) 141 mmol/L (136-145) Potassium Level 3.5 mmol/L (3.5-5.1) 3.9 mmol/L (3.5-5.1) Chloride Level 106 mmol/L (98-107) 108 mmol/L (98-107) Carbon Dioxide Level 23 mmol/L (21-32) 21 mmol/L (21-32) Anion Gap 11 (6-14) 12 (6-14) Blood Urea Nitrogen 5 mg/dL (7-20) 8 mg/dL (7-20) Creatinine 0.8 mg/dL (0.6-1.0) 0.8 mg/dL (0.6-1.0) Estimated GFR (Cockcroft-Gault) 78.7 78.7 BUN/Creatinine Ratio 6 (6-20) Glucose Level 106 mg/dL (70-99) 110 mg/dL (70-99) Calcium Level 8.4 mg/dL (8.5-10.1) 8.2 mg/dL (8.5-10.1) Iron Level 13 ug/dL (50-170) Total Iron Binding Capacity 450 ug/dL (250-450) Iron Saturation 3 % (15-34) Ferritin 6 ng/mL (8-252) Total Bilirubin 0.2 mg/dL (0.2-1.0) Aspartate Amino Transf (AST/SGOT) 20 U/L (15-37) Alanine Aminotransferase (ALT/SGPT) 18 U/L (14-59) Alkaline Phosphatase 58 U/L (46-116) Total Protein 7.4 g/dL (6.4-8.2) Albumin 3.3 g/dL (3.4-5.0) Albumin/Globulin Ratio 0.8 (1.0-1.7) Vitamin B12 Level 244 pg/mL (247-911) Serum Folate 9.58 ng/ml (3.2-20.0) Thyroid Stimulating Hormone (TSH) 3.421 uIU/mL (0.358-3.74) Assessment/Plan Assessment/Plan menorrhagia- sonogram showed enlarged uterus on 08/27/16 without fibroids. Discussed options with pt: ablation; medication therapy including IUD, hysterectomy. Pt is interested in hysterectomy. Discussed coming in tomorrow for EMB to make sure tissue is normal prior to hyst. Discussed leaving vs taking ovaries and r/b of HRT. Plan is to see pt in office tomorrow for EMB. Would like to schedule jose if ok with Heme/onc BLANCA ARVIZU MD September 11, 2016 09:43
--- NOTE | 2016-09-11 10:17 | PDOC3 ---
Discharge Summary Visit Information Date of Admission: September 10, 2016 Date of Discharge: September 11, 2016 Admitting Diagnosis Comment: Symptomatic anemia CML on chemo Fibroid uterus Final Diagnosis Problems Medical Problems: (1) Dizziness Status: Acute (2) REAL (dyspnea on exertion) Status: Acute (3) Symptomatic anemia Status: Acute (4) Tachycardia Status: Acute Brief Hospital Course Allergies Allergies Coded Allergies Type Severity Reaction Last Updated Verified No Known Drug Allergies 08/14/16 No Vital Signs Vital Signs Date Time Temp Pulse Resp B/P (MAP) Pulse Ox O2 Delivery O2 Flow Rate FiO2 09/11/16 08:00 Room Air 09/11/16 07:00 97.9 86 18 115/59 (77) 98 97.9 Lab Results Laboratory Tests Test 09/10/16 11:55 09/11/16 03:55 White Blood Count 4.9 x10^3/uL (4.0-11.0) 6.9 x10^3/uL (4.0-11.0) Red Blood Count 1.95 x10^6/uL (3.50-5.40) 3.20 x10^6/uL (3.50-5.40) Hemoglobin 5.3 g/dL (12.0-15.5) 8.7 g/dL (12.0-15.5) Hematocrit 15.9 % (36.0-47.0) 25.7 % (36.0-47.0) Mean Corpuscular Volume 82 fL (79-100) 80 fL (79-100) Mean Corpuscular Hemoglobin 27 pg (25-35) 27 pg (25-35) Mean Corpuscular Hemoglobin Concent 33 g/dL (31-37) 34 g/dL (31-37) Red Cell Distribution Width 16.7 % (11.5-14.5) 16.4 % (11.5-14.5) Platelet Count 260 x10^3/uL (140-400) 236 x10^3/uL (140-400) Neutrophils (%) (Auto) 61 % (31-73) 64 % (31-73) Lymphocytes (%) (Auto) 32 % (24-48) 29 % (24-48) Monocytes (%) (Auto) 5 % (0-9) 4 % (0-9) Eosinophils (%) (Auto) 2 % (0-3) 2 % (0-3) Basophils (%) (Auto) 1 % (0-3) 1 % (0-3) Neutrophils # (Auto) 3.0 x10^3uL (1.8-7.7) 4.4 x10^3uL (1.8-7.7) Lymphocytes # (Auto) 1.5 x10^3/uL (1.0-4.8) 2.0 x10^3/uL (1.0-4.8) Monocytes # (Auto) 0.3 x10^3/uL (0.0-1.1) 0.3 x10^3/uL (0.0-1.1) Eosinophils # (Auto) 0.1 x10^3/uL (0.0-0.7) 0.1 x10^3/uL (0.0-0.7) Basophils # (Auto) 0.0 x10^3/uL (0.0-0.2) 0.0 x10^3/uL (0.0-0.2) Prothrombin Time 11.6 SEC (11.7-14.0) Prothromb Time International Ratio 0.9 (0.8-1.1) Activated Partial Thromboplast Time 31 SEC (24-38) Sodium Level 140 mmol/L (136-145) 141 mmol/L (136-145) Potassium Level 3.5 mmol/L (3.5-5.1) 3.9 mmol/L (3.5-5.1) Chloride Level 106 mmol/L (98-107) 108 mmol/L (98-107) Carbon Dioxide Level 23 mmol/L (21-32) 21 mmol/L (21-32) Anion Gap 11 (6-14) 12 (6-14) Blood Urea Nitrogen 5 mg/dL (7-20) 8 mg/dL (7-20) Creatinine 0.8 mg/dL (0.6-1.0) 0.8 mg/dL (0.6-1.0) Estimated GFR (Cockcroft-Gault) 78.7 78.7 BUN/Creatinine Ratio 6 (6-20) Glucose Level 106 mg/dL (70-99) 110 mg/dL (70-99) Calcium Level 8.4 mg/dL (8.5-10.1) 8.2 mg/dL (8.5-10.1) Iron Level 13 ug/dL (50-170) Total Iron Binding Capacity 450 ug/dL (250-450) Iron Saturation 3 % (15-34) Ferritin 6 ng/mL (8-252) Total Bilirubin 0.2 mg/dL (0.2-1.0) Aspartate Amino Transf (AST/SGOT) 20 U/L (15-37) Alanine Aminotransferase (ALT/SGPT) 18 U/L (14-59) Alkaline Phosphatase 58 U/L (46-116) Total Protein 7.4 g/dL (6.4-8.2) Albumin 3.3 g/dL (3.4-5.0) Albumin/Globulin Ratio 0.8 (1.0-1.7) Vitamin B12 Level 244 pg/mL (247-911) Serum Folate 9.58 ng/ml (3.2-20.0) Thyroid Stimulating Hormone (TSH) 3.421 uIU/mL (0.358-3.74) Laboratory Tests Test 09/10/16 11:55 09/11/16 03:55 White Blood Count 4.9 x10^3/uL (4.0-11.0) 6.9 x10^3/uL (4.0-11.0) Red Blood Count 1.95 x10^6/uL (3.50-5.40) 3.20 x10^6/uL (3.50-5.40) Hemoglobin 5.3 g/dL (12.0-15.5) 8.7 g/dL (12.0-15.5) Hematocrit 15.9 % (36.0-47.0) 25.7 % (36.0-47.0) Mean Corpuscular Volume 82 fL (79-100) 80 fL (79-100) Mean Corpuscular Hemoglobin 27 pg (25-35) 27 pg (25-35) Mean Corpuscular Hemoglobin Concent 33 g/dL (31-37) 34 g/dL (31-37) Red Cell Distribution Width 16.7 % (11.5-14.5) 16.4 % (11.5-14.5) Platelet Count 260 x10^3/uL (140-400) 236 x10^3/uL (140-400) Neutrophils (%) (Auto) 61 % (31-73) 64 % (31-73) Lymphocytes (%) (Auto) 32 % (24-48) 29 % (24-48) Monocytes (%) (Auto) 5 % (0-9) 4 % (0-9) Eosinophils (%) (Auto) 2 % (0-3) 2 % (0-3) Basophils (%) (Auto) 1 % (0-3) 1 % (0-3) Neutrophils # (Auto) 3.0 x10^3uL (1.8-7.7) 4.4 x10^3uL (1.8-7.7) Lymphocytes # (Auto) 1.5 x10^3/uL (1.0-4.8) 2.0 x10^3/uL (1.0-4.8) Monocytes # (Auto) 0.3 x10^3/uL (0.0-1.1) 0.3 x10^3/uL (0.0-1.1) Eosinophils # (Auto) 0.1 x10^3/uL (0.0-0.7) 0.1 x10^3/uL (0.0-0.7) Basophils # (Auto) 0.0 x10^3/uL (0.0-0.2) 0.0 x10^3/uL (0.0-0.2) Prothrombin Time 11.6 SEC (11.7-14.0) Prothromb Time International Ratio 0.9 (0.8-1.1) Activated Partial Thromboplast Time 31 SEC (24-38) Sodium Level 140 mmol/L (136-145) 141 mmol/L (136-145) Potassium Level 3.5 mmol/L (3.5-5.1) 3.9 mmol/L (3.5-5.1) Chloride Level 106 mmol/L (98-107) 108 mmol/L (98-107) Carbon Dioxide Level 23 mmol/L (21-32) 21 mmol/L (21-32) Anion Gap 11 (6-14) 12 (6-14) Blood Urea Nitrogen 5 mg/dL (7-20) 8 mg/dL (7-20) Creatinine 0.8 mg/dL (0.6-1.0) 0.8 mg/dL (0.6-1.0) Estimated GFR (Cockcroft-Gault) 78.7 78.7 BUN/Creatinine Ratio 6 (6-20) Glucose Level 106 mg/dL (70-99) 110 mg/dL (70-99) Calcium Level 8.4 mg/dL (8.5-10.1) 8.2 mg/dL (8.5-10.1) Iron Level 13 ug/dL (50-170) Total Iron Binding Capacity 450 ug/dL (250-450) Iron Saturation 3 % (15-34) Ferritin 6 ng/mL (8-252) Total Bilirubin 0.2 mg/dL (0.2-1.0) Aspartate Amino Transf (AST/SGOT) 20 U/L (15-37) Alanine Aminotransferase (ALT/SGPT) 18 U/L (14-59) Alkaline Phosphatase 58 U/L (46-116) Total Protein 7.4 g/dL (6.4-8.2) Albumin 3.3 g/dL (3.4-5.0) Albumin/Globulin Ratio 0.8 (1.0-1.7) Vitamin B12 Level 244 pg/mL (247-911) Serum Folate 9.58 ng/ml (3.2-20.0) Thyroid Stimulating Hormone (TSH) 3.421 uIU/mL (0.358-3.74) Brief Hospital Course Ms. 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 as OP by our heme onc grp, admittted from office for symptomatic anemia with hgb 5, got 2 pRBC got up to 8 and fatigue gone, Also was found to have fibroid uterus, seen by gyne has ff up OP appt set up for olive, No rx needed, DispO; home COnsults: gyne, heme onc Proc: 2 pRBC Pt seen and examined, Time< 30 mins Discharge Information Condition at Discharge: Improved, Stable Follow Up: Weeks (olive gyne) Disposition/Orders: D/C to Home Scheduled Cetirizine Hcl (Zyrtec), 1 TAB PO DAILY, (Reported) Dasatinib (Sprycel), 100 MG PO DAILY, (Reported) Miscellaneous Medications Triamcinolone Acetonide (Nasal Allergy), 16.9 ML NS, (Reported) SAEED DUMONT MD September 11, 2016 10:17
[2016-09-11 10:45] VITALS: BP 124/69
--- NOTE | 2016-09-11 20:49 | CONS ---
DATE OF CONSULTATION: 09/10/2016 REASON FOR CONSULTATION: Abnormal uterine bleeding and anemia. HISTORY OF PRESENT ILLNESS: This is a 41-year-old pleasant female, 3, para 3 with currently having severe dysmenorrhea, menometrorrhagia for the past five months, requiring currently blood transfusion. This patient also has a history of chronic myelogenous leukemia that was diagnosed in 2013 and currently is on oral chemotherapeutic regimen. The patient states she has had ultrasounds two at a time with one significant for fibroids and the other one, she is not aware if the fibroids were present. The patent denies ever having an endometrial biopsy or hysteroscopic D and C. She currently does complain of having further childbearing. Denies any other types of surgeries in the past. After spending ____ time with the patient and talking about prognosis as far as possibility of the endometrial biopsy or hysteroscopy or endometrial ablation or hysterectomy, the patient would like to have a definitive therapy and also as stated at that time she has seen Dr. Dias in the past and I recommended that she continues to follow up with her and during this hospitalization and she agreed. I had contacted Dr. Dias via the phone and also had the nurse ____ down as a consult on her EMR list. She has the pleasure to take care of. If you have any questions about this patient or any other patient, feel free to contact me. THALIA HORTA MD DR: SENTHIL/delmer JOB#: [id number] / [id number]
[2016-10-03] MEDS ORDERED: PROAIR HFA8.5 GM INH (13:51)
[2016-10-03] MEDS ORDERED: CYAN100016 SL (13:51)
[2016-10-03] MEDS ORDERED: IRON200V IV (14:16)
[2016-10-03] MEDS ORDERED: MOME17SP NS (14:16)
== END 2016-09-11 12:37 | disposition home or self-care (01) | DRG 760 ==
LOC: ER 10:26 → 5 SOUTH 12:03
PROVIDERS: ADMIT Internal Medicine; ATTEND Internal Medicine
PROC: 30233N1 Transfusion of Nonautologous Red Blood Cells into Peripheral Vein, Percutaneous Approach (ICD-10-PCS; principal; 2016-09-10)
DX: D25.9 Leiomyoma of uterus, unspecified (principal); C92.10 Chronic myeloid leukemia, BCR/ABL-positive, not having achieved remission; D50.0 Iron deficiency anemia secondary to blood loss (chronic); N92.1 Excessive and frequent menstruation with irregular cycle; E53.8 Deficiency of other specified B group vitamins; Z82.49 Family history of ischemic heart disease and other diseases of the circulatory system
CPT/HCPCS: 36415; 80048; 80053; 82607; 82728; 82746; 83540; 83550; 84443; 85027; 85610; 85730; 86850; 86900; 86901; 86920; 96365; J1756; J3420; J7050; P9016; 99285-25; J7030

== ENCOUNTER → 2016-10-03 | Outpatient (CLI) | payer OTHER ==
[2016-09-11 10:45] VITALS: BP 124/69
[~2016-10-03] MED LIST changes: +CYAN100016 SL; +IRON200V IV; +MOME17SP NS; +PROAIR HFA8.5 GM INH
[2016-10-03 14:30] LABS: BASO % 0 % (0-3); EOS % 1 % (0-3); HEMATOCRIT 30.5 % (36.0-47.0); LYMPH # 1.2 x10^3/uL (1.0-4.8); LYMPH % 19 % (24-48); MEAN CORPUSCULAR HEMOGLOBIN 28 pg (25-35); MEAN CORPUSCULAR HGB CONC 33 g/dL (31-37); MEAN CORPUSCULAR VOLUME 86 fL (79-100); MONO % 6 % (0-9); NEUT % 75 % (31-73); PLATELET COUNT 237 x10^3/uL (140-400); RED BLOOD COUNT 3.54 x10^6/uL (3.50-5.40); RED CELL DISTRIBUTION WIDTH 19.7 % (11.5-14.5); WHITE BLOOD COUNT 6.2 x10^3/uL (4.0-11.0)
[2016-10-03 14:50] LABS: ALBUMIN 3.6 g/dL (3.4-5.0); ALBUMIN/GLOBULIN RATIO 0.9 (1.0-1.7); CALCIUM 8.7 mg/dL (8.5-10.1); CREATININE 0.9 mg/dL (0.6-1.0); GFR 68.7; POTASSIUM 3.8 mmol/L (3.5-5.1); TOTAL BILIRUBIN 0.4 mg/dL (0.2-1.0); TOTAL PROTEIN 7.6 g/dL (6.4-8.2)
== END | disposition home or self-care (01) ==
LOC: SURGPAT 13:09
PROVIDERS: ATTEND Obstetrics & Gynecology
DX: Z01.812 Encounter for preprocedural laboratory examination (principal)
CPT/HCPCS: 36415; 80053; 85027

== ENCOUNTER 2016-10-11 09:50 | Observation (INO) | payer OTHER ==
[~2016-10-11] VITALS: Ht 157.5 cm; Wt 78.9 kg
[~2016-10-11 09:50] MED LIST changes: +BUPIVACAINE-EPI 0.25%-1:200000 MPF 30 ML VIAL. ONE; +HYDROmorphone 2 MG/ML VIAL IV PRN; +IV RINGERS,LACTATED 1000ML 1,000 ML IV SCH; +LIDOCAINE 1% 1 ML SYRINGE. ID PRN; +MIDAZOLAM HCL/PF 2 MG/2 ML VIAL. IV PRN; +MORPHINE SULFATE 4 MG/ML DISP.SYRIN. IV PRN; +PROCHLORPERAZINE 10 MG/2 ML VIAL. IV PRN; +diphenhydrAMINE 50 MG/ML VIAL IV PRN; +fentaNYL PF VIAL 100 MCG/2 ML VIAL IV PRN
[2016-10-11] MEDS ORDERED: FAMOTIDINE 20 MG/2 ML VIAL ONE (10:12)
[2016-10-11] MEDS ORDERED: PROPOFOL 20 ML IV ONE (10:12)
[2016-10-11] MEDS ORDERED: DEXAMETHASONE SOD PHOS 20 MG/5 ML VIAL. ONE (10:12)
[2016-10-11] MEDS ORDERED: ONDANSETRON PF 4 MG/2 ML VIAL. ONE (10:12)
[2016-10-11] MEDS ORDERED: LIDOCAINE 2% PF Vial for OR 5 ML VIAL. ONE (10:12)
[2016-10-11] MEDS ORDERED: ROCURONIUM 50 MG/5 ML VIAL. ONE (10:13)
[2016-10-11] MEDS ORDERED: fentaNYL PF VIAL 100 MCG/2 ML VIAL ONE (10:13)
[2016-10-11] MEDS ORDERED: MIDAZOLAM HCL/PF 2 MG/2 ML VIAL. ONE (10:13)
[2016-10-11 11:51] LABS: BASO # 0.1 x10^3/uL (0.0-0.2); BASO % 1 % (0-3); EOS % 1 % (0-3); HEMATOCRIT 34.2 % (36.0-47.0); HEMOGLOBIN 10.9 g/dL (12.0-15.5); LYMPH # 3.3 x10^3/uL (1.0-4.8); LYMPH % 28 % (24-48); MEAN CORPUSCULAR HEMOGLOBIN 29 pg (25-35); MEAN CORPUSCULAR HGB CONC 32 g/dL (31-37); MEAN CORPUSCULAR VOLUME 92 fL (79-100); MONO % 5 % (0-9); NEUT % 66 % (31-73); PLATELET COUNT 293 x10^3/uL (140-400); RED BLOOD COUNT 3.72 x10^6/uL (3.50-5.40); RED CELL DISTRIBUTION WIDTH 22.6 % (11.5-14.5); WHITE BLOOD COUNT 11.9 x10^3/uL (4.0-11.0)
[2016-10-11] MEDS ORDERED: PHENYLEPHRINE in 0.9% NACL PF 1 MG/10 ML DISP.SYRIN. IV ONE (12:26)
[2016-10-11] MEDS ORDERED: 0.9 % SODIUM CHLORIDE 50 ML VIAL. IJ ONE (12:28)
[2016-10-11] MEDS ORDERED: ePHEDrine PF IN SALINE 50 MG/5 ML DISP.SYRIN IV ONE (12:37)
[2016-10-11 13:00] LABS: NEG OBC UR NEG; POS OBC UR POS
[2016-10-11] MEDS ORDERED: KETOROLAC 60 MG/2 ML INJ FOR OR. ONE (13:01)
[2016-10-11] MEDS ORDERED: GLYCOPYRROLATE 1 MG/5 ML VIAL. ONE (13:10)
[2016-10-11] MEDS ORDERED: NEOSTIGMINE METHYLSULFATE 5 MG/5 ML SYRINGE. ONE (13:10)
[2016-10-11] MEDS ORDERED: DESFLURANE 31 TO 60 MINUTES IH ONE (13:13)
[2016-10-11 13:14] LABS: ANISOCYTOSIS MOD; PLT ESTIMATE ADEQUATE (ADEQUATE); POLYCHROMASIA PRESENT
--- NOTE | 2016-10-11 13:20 | PDOC ---
BRIEF OPERATIVE NOTE Date: Oct 11, 2016 Pre-Op Diagnosis Menorrhagia, metrorrhagia, enlarged uterus, anemia from menorrhagia, CML Post-Op Diagnosis same Procedure Performed lavh and bso Surgeon Arun Garden Worker Nicho Anesthesiologist yes Anesthesia Type: General Blood Loss 80cc IV Fluid see anesthesia record Urine Output 125cc Specimens Obtained uterus, tubes, ovaries Findings see dictation Complications none BLANCA ARVIZU MD Oct 11, 2016 13:19
--- NOTE | 2016-10-11 13:20 | DISCH ---
DISCHARGE INSTRUCTIONS Condition on Discharge Condition on Discharge: Stable Activity After Discharge Activity Instructions for Disc: Avoid exertion Lifting Instructions after Dis: No heavy lifting, Do not lift >10 pounds Exercise Instruction after Dis: Progress as tolerated Driving Instructions after Dis: No driving for 2 weeks Weight Bearing Status after Di: Full weight bearing Diet after Discharge Diet after Discharge: Regular Wound Incision Care Wound/Incision Care: Ice to area for comfort, May get incision wet Contacting the DR. after DC Call your doctor for: If your condition worsens Follow-Up Follow up with: 1 week with BLANCA Rogers MD Oct 11, 2016 13:20
[2016-10-11] MEDS ORDERED: LACTULOSE 20 GM/30 ML SOLUTION. PO PRN (13:30)
[2016-10-11] MEDS ORDERED: ALBUTEROL SULFATE 2.5 MG/3 ML NEBU. NEB PRN ×2 (13:30→14:00)
[2016-10-11] MEDS ORDERED: NON FORMULARY ITEM (Albuterol Sulfate (Proair Hfa Inhaler) 1 PUFF) INH PRN (13:30)
[2016-10-11] MEDS ORDERED: HYDROmorphone 2 MG/ML VIAL IV PRN (13:30)
[2016-10-11] MEDS ORDERED: MAG HYDROX/ALUMINUM HYD/SIMETH 30 ML ORAL.SUSP PO PRN (13:30)
[2016-10-11] MEDS ORDERED: SIMETHICONE 80 MG TAB.CHEW PO PRN (13:30)
[2016-10-11] MEDS ORDERED: CALCIUM CARBONATE 500 MG TAB.CHEW PO PRN (13:30)
[2016-10-11] MEDS ORDERED: ONDANSETRON PF 4 MG/2 ML VIAL. IV PRN (13:30)
[2016-10-11] MEDS ORDERED: METOCLOPRAMIDE HCL 10 MG/2 ML VIAL. IV PRN (13:30)
[2016-10-11] MEDS ORDERED: IBUPROFEN 600 MG TABLET. PO PRN (13:30)
[2016-10-11] MEDS ORDERED: HYDROmorphone 2 MG/ML VIAL IM PRN (13:30)
[2016-10-11] MEDS ORDERED: BISACODYL 10 MG SUPP.RECT. PR PRN (13:30)
[2016-10-11] MEDS ORDERED: NALOXONE 0.4 MG/ML VIAL. IV PRN (13:30)
[2016-10-11] MEDS ORDERED: ESTRADIOL WEEKLY 0.1 MG PATCH. TD ONE ×2 (13:30→21:30)
[2016-10-11] MEDS ORDERED: 0.9 % SODIUM CHLORIDE 10 ML DISP.SYRIN. IV PRN (13:30)
[2016-10-11] MEDS ORDERED: diphenhydrAMINE HCL 25 MG CAPSULE PO PRN (13:30)
[2016-10-11] MEDS ORDERED: oxyCODONE/APAP 5/325 1 TAB TABLET PO PRN (13:30)
[2016-10-11] MEDS ORDERED: diphenhydrAMINE 50 MG/ML VIAL IV PRN (13:30)
[2016-10-11] MEDS ORDERED: HYDROcodone/APAP 5/325MG 1 TAB TABLET PO PRN (13:30)
[2016-10-11] MEDS ORDERED: ZOLPIDEM 5 MG TABLET. PO PRN (13:30)
[2016-10-11] MEDS: fentaNYL PF VIAL 100 MCG/2 ML VIAL IV PRN ×4 (13:54→14:50)
[2016-10-11] MEDS: MEPERIDINE PF 25 MG/ML VIAL. IV PRN ×2 (14:26→14:35)
[2016-10-11 14:50] VITALS: BP 97/48
[2016-10-11 15:05] VITALS: BP 98/51
[2016-10-11] MEDS: KETOROLAC TROMETHAMINE 30 MG/ML INJ. IV PRN ×2 (15:19→21:41)
[2016-10-11 15:20] VITALS: BP 98/50
[2016-10-11 16:10] VITALS: BP 106/54
--- NOTE | 2016-10-11 16:25 | OP ---
DATE OF SURGERY: 10/11/2016 PREOPERATIVE DIAGNOSES: Menorrhagia, metrorrhagia, enlarged uterus, anemia from the menorrhagia and chronic myeloid leukemia. POSTOPERATIVE DIAGNOSES: Menorrhagia, metrorrhagia, enlarged uterus, anemia from the menorrhagia and chronic myeloid leukemia. PROCEDURE: LAVH and BSO. SURGEON: Sonali Arvizu M.D. ACCOUNT ASSISTANT: Nicho. ANESTHESIA: General. COMPLICATIONS: None. ESTIMATED BLOOD LOSS: 80 mL. URINE OUTPUT: 125 mL. INTRAVENOUS FLUIDS: Please see anesthesia record. SPECIMENS: Uterus, tubes, and ovaries. DESCRIPTION OF PROCEDURE: After informed consent was obtained, the patient was taken to the operating room and given a smooth induction of anesthesia without complications. Her abdomen, perineum, and vagina were prepped and draped in usual sterile fashion. Her legs have been placed in Richard stirrups. She did receive a gram of Ancef prior to the procedure. A Montoya catheter had been placed. A bivalve speculum was placed in the vagina and the anterior lip of the cervix was grasped with a single tooth tenaculum. The cervicovaginal junction was infiltrated with 0.25% Marcaine with epinephrine, 10 mL was used. This was injected at 2, 4, 8, and 10 o'clock on the cervix. The Valtchev was placed through the cervical os and attached to the tenaculum. The speculum was then removed. I changed gloves and went above. A 5 mm incision was made just above the umbilicus. The bladeless trocar was placed down through this incision, using the [employer] technology. The camera confirmed good trocar placement. The gas was connected and the abdomen was insufflated. Two lateral ports were also placed on each side of the abdomen. These were placed under direct visualization. The patient was then placed in Trendelenburg and the uterus was visualized. It was slightly enlarged, but otherwise normal in appearance with 2 normal appearing ovaries and 2 normal appearing tubes. Posterior to the uterus, there was a little bit of scarring between the descending colon and the uterus, but this was very filmy and it was easy to take down bluntly. We then used the LigaSure to cauterize the round ligaments bilaterally. These ligaments were transected and then a bladder flap was created using blunt dissection. We then proceeded to visualize both ureters on each side and cauterized across the infundibulopelvic ligament on both sides. This was to free the ovaries from the sidewalls. This was done again on both sides. We then proceeded to clamp, cut, and ligate cauterizing the uterine vessels down the sides of the uterus. We did this all the way down to the uterosacral ligaments. We then removed the instruments from the abdomen and went down below. A weighted speculum was placed in the vagina and the Valtchev and tenaculum were replaced by 2 Shoshana thyroid clamps. We created a circumferential incision around the cervix using the knife. The bladder was retracted superiorly using blunt dissection. This was very easy to do. We then entered the posterior peritoneum using sharp dissection. The posterior peritoneum was tagged to the posterior vaginal wall and saved for later use. The Kajal speculum was then placed intraperitoneally. We then proceeded to clamp, cut, and ligate what was left of the uterosacral pedicles. Once these were tied off using Nannette transfixion sutures, the sutures were taken through the sides of the cuff of the vagina and tagged for later use. The uterus was then removed, minimal bleeding was noted. We then closed the peritoneum using a running pursestring suture of 2-0 Vicryl. The vagina was then closed with running locking stitch of 2-0 Vicryl. Good hemostasis was noted. We then went back above to irrigate the pelvis. Pelvis was irrigated and no bleeding was noted. Tisseel was sprayed on all the raw surfaces. The ports were then removed under direct visualization. No bleeding was noted from the port sites. The ports were then closed with an interrupted suture of 4-0 nylon and infiltrated with anesthetic for patient comfort. The patient tolerated the procedure well. There were no complications. Her Montoya was removed prior to her leaving the operating room. SONALI ARVIZU MD DR: EFRAIN/delmer JOB#: [id number] / [id number]
[2016-10-11 17:15] VITALS: BP 92/48
[2016-10-11 21:00] VITALS: BP 113/52
[2016-10-11] MEDS ORDERED: NON FORMULARY ITEM (Dasatinib (Sprycel) 100 MG) PO SCH (21:00)
[2016-10-12 01:00] VITALS: BP 95/45
[2016-10-12 06:14] VITALS: BP 106/62
[2016-10-12] MEDS: KETOROLAC TROMETHAMINE 30 MG/ML INJ. IV PRN (06:15)
[2016-10-12 07:11] LABS: CALCIUM 7.7 mg/dL (8.5-10.1); CREATININE 0.7 mg/dL (0.6-1.0); GFR 91.8; POTASSIUM 4.6 mmol/L (3.5-5.1)
--- NOTE | 2016-10-12 08:32 | PDOC ---
SURGICAL PROGRESS NOTE Subjective Doing well. No complaints. Ambulating and tolerating regular diet and oral pain meds Vital Signs Vital Signs Date Time Temp Pulse Resp B/P (MAP) Pulse Ox O2 Delivery O2 Flow Rate FiO2 10/12/16 06:14 98.2 91 18 106/62 (77) 98.2 10/11/16 17:15 99 Room Air 10/11/16 16:10 2.0 I&O Intake and Output 10/12/16 07:00 Intake Total 240 ml Output Total 250 ml Balance -10 ml Intake Oral 240 ml Output Urine Total 250 ml PATIENT HAS A VOGT: No General: Alert, Oriented X3, Cooperative, No acute distress HEENT: Mucous membr. moist/pink Lungs: Clear to auscultation, Normal air movement Heart: Regular rate, Normal S1, Normal S2, No murmurs Abdomen: Normal bowel sounds, Soft, No tenderness, No hepatosplenomegaly, No masses, Other (incisions C/d/i) Extremities: No clubbing, No cyanosis, No edema, Normal pulses, No tenderness/ swelling Labs Laboratory Tests Test 10/11/16 10:00 10/11/16 10:40 10/11/16 17:10 10/12/16 06:50 Urine Test Negative (NEG) White Blood Count 11.9 x10^3/uL (4.0-11.0) Red Blood Count 3.72 x10^6/uL (3.50-5.40) Hemoglobin 10.9 g/dL (12.0-15.5) Hematocrit 34.2 % (36.0-47.0) 29.7 % (36.0-47.0) Mean Corpuscular Volume 92 fL (79-100) Mean Corpuscular Hemoglobin 29 pg (25-35) Mean Corpuscular Hemoglobin Concent 32 g/dL (31-37) Red Cell Distribution Width 22.6 % (11.5-14.5) Platelet Count 293 x10^3/uL (140-400) Neutrophils (%) (Auto) 66 % (31-73) Lymphocytes (%) (Auto) 28 % (24-48) Monocytes (%) (Auto) 5 % (0-9) Eosinophils (%) (Auto) 1 % (0-3) Basophils (%) (Auto) 1 % (0-3) Neutrophils # (Auto) 7.8 x10^3uL (1.8-7.7) Lymphocytes # (Auto) 3.3 x10^3/uL (1.0-4.8) Monocytes # (Auto) 0.5 x10^3/uL (0.0-1.1) Eosinophils # (Auto) 0.1 x10^3/uL (0.0-0.7) Basophils # (Auto) 0.1 x10^3/uL (0.0-0.2) Platelet Estimate Adequate (ADEQUATE) Large Platelets Present Polychromasia Present Anisocytosis Mod Sodium Level 140 mmol/L (136-145) Potassium Level 4.6 mmol/L (3.5-5.1) Chloride Level 108 mmol/L (98-107) Carbon Dioxide Level 17 mmol/L (21-32) Anion Gap 15 (6-14) Blood Urea Nitrogen 5 mg/dL (7-20) Creatinine 0.7 mg/dL (0.6-1.0) Estimated GFR (Cockcroft-Gault) 91.8 Glucose Level 102 mg/dL (70-99) Calcium Level 7.7 mg/dL (8.5-10.1) Laboratory Tests Test 10/11/16 10:00 10/11/16 10:40 10/11/16 17:10 10/12/16 06:50 Urine Test Negative (NEG) White Blood Count 11.9 x10^3/uL (4.0-11.0) Red Blood Count 3.72 x10^6/uL (3.50-5.40) Hemoglobin 10.9 g/dL (12.0-15.5) Hematocrit 34.2 % (36.0-47.0) 29.7 % (36.0-47.0) Mean Corpuscular Volume 92 fL (79-100) Mean Corpuscular Hemoglobin 29 pg (25-35) Mean Corpuscular Hemoglobin Concent 32 g/dL (31-37) Red Cell Distribution Width 22.6 % (11.5-14.5) Platelet Count 293 x10^3/uL (140-400) Neutrophils (%) (Auto) 66 % (31-73) Lymphocytes (%) (Auto) 28 % (24-48) Monocytes (%) (Auto) 5 % (0-9) Eosinophils (%) (Auto) 1 % (0-3) Basophils (%) (Auto) 1 % (0-3) Neutrophils # (Auto) 7.8 x10^3uL (1.8-7.7) Lymphocytes # (Auto) 3.3 x10^3/uL (1.0-4.8) Monocytes # (Auto) 0.5 x10^3/uL (0.0-1.1) Eosinophils # (Auto) 0.1 x10^3/uL (0.0-0.7) Basophils # (Auto) 0.1 x10^3/uL (0.0-0.2) Platelet Estimate Adequate (ADEQUATE) Large Platelets Present Polychromasia Present Anisocytosis Mod Sodium Level 140 mmol/L (136-145) Potassium Level 4.6 mmol/L (3.5-5.1) Chloride Level 108 mmol/L (98-107) Carbon Dioxide Level 17 mmol/L (21-32) Anion Gap 15 (6-14) Blood Urea Nitrogen 5 mg/dL (7-20) Creatinine 0.7 mg/dL (0.6-1.0) Estimated GFR (Cockcroft-Gault) 91.8 Glucose Level 102 mg/dL (70-99) Calcium Level 7.7 mg/dL (8.5-10.1) I have reviewed the following vitals, labs Problem List POD #1. From [facility] and O. Doing well. Plan for discharge Problems: BLANCA ARVIZU MD Oct 12, 2016 08:32
--- NOTE | 2016-10-12 08:37 | PDOC3 ---
Discharge Summary Visit Information Date of Admission: Oct 11, 2016 Date of Discharge: Oct 12, 2016 Admitting Diagnosis: menorrhagia, metrorrhagia, enlarged uterus, anemia Brief Hospital Course Allergies Allergies Coded Allergies Type Severity Reaction Last Updated Verified No Known Drug Allergies 10/11/16 No Vital Signs Vital Signs Date Time Temp Pulse Resp B/P (MAP) Pulse Ox O2 Delivery O2 Flow Rate FiO2 10/12/16 06:14 98.2 91 18 106/62 (77) 98.2 10/11/16 17:15 99 Room Air 10/11/16 16:10 2.0 Lab Results Laboratory Tests Test 10/11/16 10:00 10/11/16 10:40 10/11/16 17:10 10/12/16 06:50 Urine Test Negative (NEG) White Blood Count 11.9 x10^3/uL (4.0-11.0) Red Blood Count 3.72 x10^6/uL (3.50-5.40) Hemoglobin 10.9 g/dL (12.0-15.5) Hematocrit 34.2 % (36.0-47.0) 29.7 % (36.0-47.0) Mean Corpuscular Volume 92 fL (79-100) Mean Corpuscular Hemoglobin 29 pg (25-35) Mean Corpuscular Hemoglobin Concent 32 g/dL (31-37) Red Cell Distribution Width 22.6 % (11.5-14.5) Platelet Count 293 x10^3/uL (140-400) Neutrophils (%) (Auto) 66 % (31-73) Lymphocytes (%) (Auto) 28 % (24-48) Monocytes (%) (Auto) 5 % (0-9) Eosinophils (%) (Auto) 1 % (0-3) Basophils (%) (Auto) 1 % (0-3) Neutrophils # (Auto) 7.8 x10^3uL (1.8-7.7) Lymphocytes # (Auto) 3.3 x10^3/uL (1.0-4.8) Monocytes # (Auto) 0.5 x10^3/uL (0.0-1.1) Eosinophils # (Auto) 0.1 x10^3/uL (0.0-0.7) Basophils # (Auto) 0.1 x10^3/uL (0.0-0.2) Platelet Estimate Adequate (ADEQUATE) Large Platelets Present Polychromasia Present Anisocytosis Mod Sodium Level 140 mmol/L (136-145) Potassium Level 4.6 mmol/L (3.5-5.1) Chloride Level 108 mmol/L (98-107) Carbon Dioxide Level 17 mmol/L (21-32) Anion Gap 15 (6-14) Blood Urea Nitrogen 5 mg/dL (7-20) Creatinine 0.7 mg/dL (0.6-1.0) Estimated GFR (Cockcroft-Gault) 91.8 Glucose Level 102 mg/dL (70-99) Calcium Level 7.7 mg/dL (8.5-10.1) Laboratory Tests Test 10/11/16 10:00 10/11/16 10:40 10/11/16 17:10 10/12/16 06:50 Urine Test Negative (NEG) White Blood Count 11.9 x10^3/uL (4.0-11.0) Red Blood Count 3.72 x10^6/uL (3.50-5.40) Hemoglobin 10.9 g/dL (12.0-15.5) Hematocrit 34.2 % (36.0-47.0) 29.7 % (36.0-47.0) Mean Corpuscular Volume 92 fL (79-100) Mean Corpuscular Hemoglobin 29 pg (25-35) Mean Corpuscular Hemoglobin Concent 32 g/dL (31-37) Red Cell Distribution Width 22.6 % (11.5-14.5) Platelet Count 293 x10^3/uL (140-400) Neutrophils (%) (Auto) 66 % (31-73) Lymphocytes (%) (Auto) 28 % (24-48) Monocytes (%) (Auto) 5 % (0-9) Eosinophils (%) (Auto) 1 % (0-3) Basophils (%) (Auto) 1 % (0-3) Neutrophils # (Auto) 7.8 x10^3uL (1.8-7.7) Lymphocytes # (Auto) 3.3 x10^3/uL (1.0-4.8) Monocytes # (Auto) 0.5 x10^3/uL (0.0-1.1) Eosinophils # (Auto) 0.1 x10^3/uL (0.0-0.7) Basophils # (Auto) 0.1 x10^3/uL (0.0-0.2) Platelet Estimate Adequate (ADEQUATE) Large Platelets Present Polychromasia Present Anisocytosis Mod Sodium Level 140 mmol/L (136-145) Potassium Level 4.6 mmol/L (3.5-5.1) Chloride Level 108 mmol/L (98-107) Carbon Dioxide Level 17 mmol/L (21-32) Anion Gap 15 (6-14) Blood Urea Nitrogen 5 mg/dL (7-20) Creatinine 0.7 mg/dL (0.6-1.0) Estimated GFR (Cockcroft-Gault) 91.8 Glucose Level 102 mg/dL (70-99) Calcium Level 7.7 mg/dL (8.5-10.1) Brief Hospital Course Ms. Joel is a 41 old F who presented with menorrhagia and anemia. She was found to have an enlarged uterus on US. She presented for LAVH and BSO. She underwent the planned procedure without difficulty. Today, she is eating and ambulating and tolerating her diet. SHe wants to go home. Her vitals and labs are stable. Plan for discharge. Discharge Information Follow Up: Weeks (1) Disposition/Orders: D/C to Home Scheduled Cetirizine Hcl (Zyrtec), 1 TAB PO DAILY, (Reported) Dasatinib (Sprycel), 100 MG PO DAILY, (Reported) Mometasone Furoate (Nasonex), 2 SPRAYS NS DAILY, (Reported) Scheduled PRN Albuterol Sulfate (Proair Hfa Inhaler), 1 PUFF INH PRN Q6HRS PRN for SHORTNESS OF BREATH, (Reported) Miscellaneous Medications Cyanocobalamin (Vitamin B-12) (Vitamin B-12), 1,000 MCG SL, (Reported) Iron Sucrose Complex (Venofer), 200 MG IV, (Reported) Triamcinolone Acetonide (Nasal Allergy), 16.9 ML NS, (Reported) BLANCA ARVIZU MD Oct 12, 2016 08:37
[2016-10-12] MEDS ORDERED: FLUTICASONE 50MCG/NASAL SPRAY 16GM BOTTLE. NS SCH (09:00)
[2016-10-12] MEDS ORDERED: CETIRIZINE HCL 10 MG TABLET. PO SCH (09:00)
[2016-10-12] MEDS ORDERED: NON FORMULARY ITEM (Dasatinib (Sprycel) 100 MG) PO SCH (09:00)
--- NOTE | 2016-10-12 17:06 | PATHOLOGY ---
PATHOLOGY REPORT * * * * * * * * FINAL DIAGNOSIS: Uterus and attached bilateral fallopian tubes and ovaries, laparoscopic assisted vaginal hysterectomy with bilateral salpingo-oophorectomy: - Adenomyosis, uterine corpus, with mild myometrial hypertrophy (uterine weight 120 grams). - Eversion of endocervix onto anterior cervical lip. - Chronic cervicitis with focal squamous metaplasia. - Cyst of endocervix showing tubal metaplasia. - Slightly disordered and dyssynchronous endometrium showing focal glandular/stromal breakdown. - Left paratubal cysts. - Cystic follicles of right ovary. - Few cystic follicles with focal regressive changes of left ovary. COMMENT: There is no evidence of malignancy. (JPM:mggbabi; d/t: 10/12/16) REPORT ELECTRONICALLY SIGNED BY: Ernesto Bond M.D. DATE/TIME: 10/12/2016 17:05 * * * * * * * * GROSS PATHOLOGY: The specimen is received in formalin and is designated "uterus, cervix, bilateral ovaries and tubes." The specimen consists of a uterus with attached bilateral fallopian tubes and ovaries. The uterus weighs 120 grams and measures 9.3 cm in length, 6.0 cm in width, and 4.9 cm in thickness. The uterine serosa is pink-solitario, smooth, and glistening. At the level of the os, the exocervix measures up to 3.0 x 2.9 cm. The exocervical epithelium is solitario and focally distorted by instrument teeth johnson. There is eversion of orange solitario endocervical mucosa primarily out onto the anterior cervical lip. The linear patent os measures 1.5 cm in length. The uterus is opened anterior and longitudinally. The squamocolumnar junction is well demarcated. The endocervical canal measures approximately 3.0 cm in length. The endometrial cavity has a triangular shape configuration and it measures 3.0 x 4.5 cm. The endocervical mucosa is yellow-red and trabeculated. The endometrial mucosa is yellow-red to yellowish brown soft and somewhat friable, and measures up to 0.1 to 0.2 cm in thickness. The myometrial wall is pink-solitario and rubbery and measures up to 2.5 cm in thickness. The base of the endometrium is slightly irregular. There is focal cystic adenomyosis containing altered blood within the posterior myometrium. There are no discrete masses within the myometrium. The slightly tortuous fimbriated right fallopian tube measures up to 7.5 cm in length. The tubal serosa is reddish purple to brown and erythematous. The pink-solitario partly cerebriform right ovary measures up to 3.2 x 2.6 x 1.5 cm. Sectioning reveals two thin-walled cysts containing slightly blood tinged fluid measuring up to 1.7 cm. There are no papillary excrescences. The slightly tortuous fimbriated left fallopian tube measures 7.0 cm in length and is approximately 0.5 cm in width. The tubal serosa is pink and glistening. There are two thin-walled cysts present near the fimbriated end. The cerebriform pink-solitario left ovary measures up to 2.6 x 2.0 x 1.4 cm in greatest dimension. There is a small tannish white nodule on the capsular surface measuring up to 0.6 cm. Sectioning reveals a few small cysts containing blood tinged fluid measuring up to 0.9 cm. There are no papillary excrescences. Sections are submitted as follows: A1-A2 uterine cervix A3 anterior endomyometrium A4-A6 posterior endomyometrium with A5 and A6 containing apparent foci of adenomyosis A7, A8 right adnexa A9, A10 left adnexa (JPM:mgr; d/t: 10/11/16) INITIAL CPT CODE(S): A; 99597 Professional services performed by [facility] at [address] [address] Technical services performed by [facility] at [address] [place] [address], [address], [place] [address]. SPECIMEN(S) RECEIVED: A.Uterus, cervix, bilateral ovaries and tubes CLINICAL HISTORY: Anemia, iron deficiency anemia, menorrhagia, metrorrhagia, enlarged uterus PATIENT: SETH SCALES /AGE: 3 1975 (Age: 41) PATIENT #: [id number] ALT CASE #: SPECIMEN COLLECTION DATE: 10/11/2016 SPECIMEN RECEIVED DATE: 10/11/2016 [facility] - [address] [place] [address] - PHONE: [phone] * * * END OF REPORT * * *
== END 2016-10-12 09:53 | disposition home or self-care (01) ==
LOC: SURG 09:50 → 3 NORTH 13:40
PROVIDERS: ADMIT Obstetrics & Gynecology; ATTEND Obstetrics & Gynecology
DX: N92.0 Excessive and frequent menstruation with regular cycle (principal); N92.1 Excessive and frequent menstruation with irregular cycle; N85.2 Hypertrophy of uterus; D64.9 Anemia, unspecified; C92.10 Chronic myeloid leukemia, BCR/ABL-positive, not having achieved remission
CPT/HCPCS: 36415; 58552; 80048; 81025; 85007; 85014; 85027; 86850; 86900; 86901; 88307; 96374; 96375; 96376; C1769; G0378; G0379; J0690; J1100; J1885; J2175; J2250; J2370; J2405; J2704; J2710; J2765; J3010; J3490; J7030; J7120; S0028

== ENCOUNTER → 2017-01-18 | Outpatient (CLI) | payer OTHER ==
[~2017-01-18] MED LIST changes: -BUPIVACAINE-EPI 0.25%-1:200000 MPF 30 ML VIAL. ONE; +FURO40TA4 PO; -HYDROmorphone 2 MG/ML VIAL IV PRN; -IV RINGERS,LACTATED 1000ML 1,000 ML IV SCH; -LIDOCAINE 1% 1 ML SYRINGE. ID PRN; -MIDAZOLAM HCL/PF 2 MG/2 ML VIAL. IV PRN; -MORPHINE SULFATE 4 MG/ML DISP.SYRIN. IV PRN; +POTA20TA4 PO; -PROCHLORPERAZINE 10 MG/2 ML VIAL. IV PRN; -diphenhydrAMINE 50 MG/ML VIAL IV PRN; -fentaNYL PF VIAL 100 MCG/2 ML VIAL IV PRN
--- NOTE | 2017-01-18 08:17 | EKG ---
[facility] [address] [place] [address] Test Date: 2017-01-18 Test Time: 08:15:37 Pat Name: SETH SCALES Department: Room: Gender: F Release Manager: ERON : 1975 Requested By: LOS OROZCO Order Number: [id number] Reading MD: Jordana Espino Measurements Intervals Hubertus Rate: 82 P: 51 AR: 132 QRS: 54 QRSD: 64 T: 41 QT: 372 QTc: 438 Interpretive Statements SINUS RHYTHM LOW LIMB LEAD VOLTAGE QRS(T) CONTOUR ABNORMALITY CONSISTENT WITH ANTEROSEPTAL INFARCT AGE UNDETERMINED ABNORMAL ECG RI6.01 No previous ECG available for comparison Electronically Signed On 01-18-2017 10:40:33 CDT by Jordana Espino
--- NOTE | 2017-01-18 15:43 | RAD ---
Indication history of anemia and leukemia. Shortness of air. Frontal and lateral views of the chest were obtained. No prior imaging of the chest is available. There are moderately large bilateral pleural effusions. There is some associated volume loss at the lung bases compatible with atelectasis. Heart size and pulmonary vessels are within normal limits. There is no pneumothorax. IMPRESSION: Moderately large bilateral pleural effusions
== END | disposition home or self-care (01) ==
LOC: RAD 07:55
PROVIDERS: ATTEND Internal Medicine Hematology & Oncology
DX: C92.10 Chronic myeloid leukemia, BCR/ABL-positive, not having achieved remission (principal); C95.90 Leukemia, unspecified not having achieved remission; J90 Pleural effusion, not elsewhere classified; D64.9 Anemia, unspecified; R94.31 Abnormal electrocardiogram [ECG] [EKG]
CPT/HCPCS: 71020; 93005

== ENCOUNTER → 2017-03-11 | Outpatient (CLI) | payer OTHER ==
[2017-01-21 15:00] VITALS: BP 112/78
--- NOTE | 2017-03-11 12:04 | EKG ---
[facility] [address] [place] [address] Test Date: 2017-03-11 Test Time: 12:02:01 Pat Name: SETH SCALES Department: Room: Gender: F Adoption Manager: JUSTIN : 1975 Requested By: LOS OROZCO Order Number: [id number] Reading MD: Sam Cash MD Measurements Intervals [place] Rate: 61 P: 43 GA: 138 QRS: 54 QRSD: 70 T: 51 QT: 406 QTc: 410 Interpretive Statements SINUS RHYTHM Electronically Signed On 03-12-2017 15:12:42 DX BOARD OPERATOR by Sam Cash MD
== END | disposition home or self-care (01) ==
LOC: EKG 11:35
PROVIDERS: ATTEND Internal Medicine Hematology & Oncology
DX: C92.10 Chronic myeloid leukemia, BCR/ABL-positive, not having achieved remission (principal)
CPT/HCPCS: 93005

== ENCOUNTER → 2018-12-23 | Outpatient (CLI) | payer OTHER ==
[2017-01-21 15:00] VITALS: BP 112/78
[~2018-12-23] MED LIST changes: +ALBU2.5V8 INH; -PROAIR HFA8.5 GM INH
--- NOTE | 2018-12-23 08:39 | CARD ---
MR#: [id number] Date of Study: 12/23/2018 Ordering Physician: LOS OROZCO, Referring Physician: LOS OROZCO, Tech: Prudence Sue [facility] APPROVED REPORT EXAM: Two-dimensional and M-mode echocardiogram with Doppler and color Doppler. Other Information Quality : GoodHR: 64bpm Rhythm : NSR INDICATION Cardiomyopathy 2D DIMENSIONS RVDd2.8 (2.9-3.5cm)Left Atrium(2D)3.7 (1.6-4.0cm) IVSd1.0 (0.7-1.1cm)Aortic Root(2D)2.9 (2.0-3.7cm) LVDd4.4 (3.9-5.9cm)LVOT Diameter2.0 (1.8-2.4cm) PWd0.8 (0.7-1.1cm)LVDs2.9 (2.5-4.0cm) FS (%) 34.0 %SV55.8 ml LVEF(%)63.1 (>50%) M-Mode DIMENSIONS Left Atrium(MM)3.23 (2.5-4.0cm)Aortic Root2.98 (2.2-3.7cm) Aortic Valve AoV Peak Teddy.113.1cm/sAoV VTI26.3cm AO Peak GR.5.1mmHgLVOT Peak Teddy.85.9cm/s AO Mean GR.2mmHgAVA (VMAX)2.40cm2 RAJENDRA (VTI)2.40cm2 Mitral Valve MV E Citiidwg16.5cm/sMV DECEL APAR127ct MV A Raiwhinp95.4cm/sE/A Ratio2.3 Pulmonary Valve PV Peak Symilxgp72.2cm/s Pulmonary Vein S1 Wrmaihiw81.5cm/sD2 Jzmzaeuq10.4cm/s LEFT VENTRICLE The left ventricle is normal size. There is normal left ventricular wall thickness. The left ventricu lar systolic function is normal and the ejection fraction is within normal range. The Ejection Fracti on is 60-65%. There is normal LV segmental wall motion. The left ventricular diastolic function and f illing is normal for age. RIGHT VENTRICLE The right ventricle is normal size. There is normal right ventricular wall thickness. The right ventr icular systolic function is normal. ATRIA The left atrium size is normal. The right atrium size is normal. The interatrial septum is intact wit h no evidence for an atrial septal defect or patent foramen ovale as noted on 2-D or Doppler imaging. AORTIC VALVE The aortic valve is normal in structure and function. The aortic valve is trileaflet. Doppler and Col or Flow revealed no significant aortic regurgitation. There is no significant aortic valvular stenosi s. There is no aortic valvular vegetation. MITRAL VALVE The mitral valve is normal in structure and function. There is no evidence of mitral valve prolapse. There is no mitral valve stenosis. Doppler and Color-flow revealed trace mitral regurgitation. TRICUSPID VALVE The tricuspid valve is normal in structure and function. Doppler and Color Flow revealed trace tricus pid regurgitation. There is no tricuspid valve prolapse or vegetation. There is no tricuspid valve st enosis. PULMONIC VALVE The pulmonary valve is normal in structure and function. Doppler and Color Flow revealed no pulmonic valvular regurgitation. There is no pulmonic valvular stenosis. GREAT VESSELS The aortic root is normal in size. The ascending aorta is normal in size. The IVC is normal in size a nd collapses >50% with inspiration. PERICARDIAL EFFUSION There is a trace pericardial effusion. Critical Notification Critical Value: No <Conclusion> The left ventricular systolic function is normal and the ejection fraction is within normal range. Th e Ejection Fraction is 60-65%. There is normal LV segmental wall motion. Signed by : Sam Cash, Electronically Approved : 12/23/2018 08:38:49
== END | disposition home or self-care (01) ==
LOC: ECHO 07:46
PROVIDERS: ATTEND Internal Medicine Hematology & Oncology
DX: C92.10 Chronic myeloid leukemia, BCR/ABL-positive, not having achieved remission (principal); I42.9 Cardiomyopathy, unspecified
CPT/HCPCS: 93306

== ENCOUNTER → 2019-02-10 | Outpatient (CLI) | payer OTHER ==
[2017-01-21 15:00] VITALS: BP 112/78
--- NOTE | 2019-02-10 10:52 | EKG ---
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
== END | disposition home or self-care (01) ==
LOC: EKG 10:11
PROVIDERS: ATTEND Internal Medicine Hematology & Oncology
DX: C92.10 Chronic myeloid leukemia, BCR/ABL-positive, not having achieved remission (principal); Z88.5 Allergy status to narcotic agent
CPT/HCPCS: 93005

== ENCOUNTER → 2019-04-01 | Outpatient (CLI) | payer OTHER ==
[2017-01-21 15:00] VITALS: BP 112/78
--- NOTE | 2019-04-01 17:23 | KCIC ---
MRI of the cervical spine without contrast 04/01/2019 CLINICAL HISTORY: Neck pain which radiates down both arms. TECHNIQUE: Unenhanced T1-weighted, T2-weighted and inversion recovery sagittal and gradient echo and T2-weighted axial images of the cervical spine were obtained. FINDINGS: Comparison is made to radiographs of the cervical spine dated 02/04/2019. Very mild lateral curvature of the cervical spine is seen convex to the right. There is reversal of the normal cervical lordosis. Degenerative signal changes are seen involving all of the disks of the cervical spine. Degenerative signal changes are seen within the marrow surrounding these discs. Loss of height of the C5-6 disc is noted. No area of abnormal signal intensity is seen involving the cervical spinal cord. At the C2-3 and C3-4 disc spaces there are mild generalized disc bulges. Degenerative changes are seen involving the uncovertebral and facet joints bilaterally. These findings do not result in significant central spinal canal or neural foraminal stenosis. At the C4-5 disc space there is a mild generalized disc bulge. Degenerative changes are seen involving the uncovertebral and facet joints, left greater than right. These findings when combined do not result in significant central spinal canal stenosis. Mild left neural foraminal stenosis is seen. The right neural foramen is patent. At the C5-6 disc space there is a mild generalized disc bulge. Superimposed on this disc bulge is a right paracentral/lateral focal disc protrusion. This measures 4 mm in AP diameter. Degenerative changes are seen involving the uncovertebral and facet joints, right greater than left. These findings when combined result in mild right greater than left central spinal canal stenosis without evidence of cord impingement. Mild to moderate right neural foraminal stenosis is seen. The left neural foramen is patent. At the C6-7 disc space is a mild generalized disc bulge. Degenerative changes are seen involving the uncovertebral and facet joints bilaterally. These findings do not result in significant central spinal canal or neural foraminal stenosis. At the C7-T1 disc space is a minimal generalized disc bulge. Degenerative changes are seen within the facet joints bilaterally. These findings do not result in significant central spinal canal or neural foraminal stenosis. IMPRESSION: Degenerative changes are seen throughout the cervical spine as discussed above. These findings results in mild right greater than left central spinal canal stenosis without evidence of cord impingement at C5-6. Mild left neural foraminal stenosis is seen at C4-5. Mild to moderate right neural foraminal stenosis is seen at C5-6. Electronically signed by: Lucas Alfaro MD (04/01/2019 5:20 PM) [facility]
== END | disposition home or self-care (01) ==
LOC: KCIC MRI 15:48
PROVIDERS: ATTEND Physician Assistant Medical
DX: M47.22 Other spondylosis with radiculopathy, cervical region (principal); M48.02 Spinal stenosis, cervical region
CPT/HCPCS: 72141

== ENCOUNTER → 2019-04-23 | Outpatient (CLI) | payer OTHER ==
[2017-01-21 15:00] VITALS: BP 112/78
[~2019-04-23] MED LIST changes: +ATOR10TA60 PO; +ESTR1TAB15 PO; +NILO150C PO; +TRAM50TA PO
--- NOTE | 2019-04-23 13:52 | PAIN ---
DATE OF SERVICE: 04/23/2019 INITIAL CONSULTATION FOR PAIN CLINIC CHIEF COMPLAINT: Neck and right upper extremity pain. HISTORY OF PRESENT ILLNESS: This is a 43-year-old female who presents with history of pain for about 1 year, increasing pain in the base of neck and right upper extremity. Unfortunately, it is getting worse with time. No specific injury or action that she is aware of. It has been gradually getting worse over time. The patient reports that she has had physical therapy, which helped initially and also has had a chiropractic treatment for many years in the past, which helped temporarily as well, but nothing recently. Physical therapy is most recently in February of this year. The patient reports she is also taking tramadol, which helps mildly and also taking Motrin, Advil and Tylenol, which helps only about 20% or so. The patient is still doing stretching and strengthening exercises on her own as well as the physical therapy, which she completed in February of this year which was just last month. The patient reports the pain in the base of the neck and right upper extremity, radiating to the anterior deltoid, anterior biceps, into the anterior forearm and into the thumb, more specifically with some numbness and tingling, sometimes on the first finger as well. It is worse with weightbearing, changing positions, reaching overhead with her right arm, also with twisting her neck to the right side, can exacerbate the pain and radiation into the upper extremity as well. The patient reports it is constant, sharp, shooting with numbness in the fingers and tingling in the hand and the arm, intermittent in intensity, but always present, radiating to the arm on the right, and aching and dull on the right side also. The patient also tells headaches as well in the posterior occiput at times. The patient reports disability rating from 0-10, 10 being the worst, is a 7 with family home responsibilities and occupation activities, 5 with recreation, 2 with self-care and 7 with life support activities. The patient did have MRI scan of the cervical spine, which is dated 04/01/2019 showing a C5-C6 mild generalized disk bulge superimposed with a right paracentral lateral focal disk protrusion measuring 4 mm in AP diameter. C4-C5, C2-C3, C3-C4 shows generalized disk bulges as well without significant central stenosis. The patient's right upper extremity shows significant fatigability with no overt loss of motor function, significant fatigability with any repetitive motions, especially using computer mouse and typing. PAST MEDICAL HISTORY: Significant for chronic myelocytic leukemia in 2013, still taking oral chemotherapy, history of depression, history of eczema. PREVIOUS SURGERIES: Include total hysterectomy in 2017. CURRENT MEDICATIONS: Include atorvastatin, tramadol, estradiol and Tasigna chemo. ALLERGIES: THE PATIENT IS ALLERGIC TO MORPHINE. FAMILY HISTORY: Significant for diabetes, arthritis and heart disease. SOCIAL HISTORY: The patient does not drink alcohol, does not smoke, does not use any illegal, illicit or recreational drugs. 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 REVIEW OF SYSTEMS: The patient's review of systems is positive for those items mentioned in history of present illness. All systems reviewed and otherwise negative. It is complete, full and well documented on the patient's chart. PHYSICAL EXAMINATION: VITAL SIGNS: The patient's blood pressure is 135/85, pulse 69, respirations 16, temperature 97.8 degrees Fahrenheit, height is 5 feet 2 inches, weight is 173 pounds. GENERAL: The patient is awake, alert, oriented, appropriate, very pleasant demeanor. HEENT: Head shows normocephalic, atraumatic. Extraocular movements are intact and symmetrical. Oral cavity shows mucous membranes are moist and pink. Dentition is intact. NECK: Shows anterior throat supple without palpable lymphadenopathy noted. Swallow reflex symmetrical. CHEST: Shows normal on inspection. Breath sounds are clear to auscultation bilaterally. HEART: Shows S1, S2 clear. No murmurs auscultated. ABDOMEN: Soft, nontender, nondistended. No palpable organomegaly is noted. There is no rebound or guarding demonstrated. BACK: Shows spine grossly in the midline. Normal-appearing thoracic kyphosis and lumbar lordotic curvature as well as cervical lordotic curvature. Cervical paraspinous muscle shows symmetrical on inspection, on palpation shows some mild tenderness inferiorly in the right greater than left middle and inferior cervical paraspinous musculature without significant radiation, without atrophy or hypertrophy. The patient shows good rotational motion both laterally greater than 45 degrees right and left as well as extension and full forward flexion without significant pain reported. The patient's upper extremities show deep tendon reflexes 2+ in the biceps and triceps tendons. Motor exam is strong with approximately 4 on a scale of 5 with right general ii farmworker strength and 5/5 on the left. Biceps and triceps flexion likewise 4/5 on the right, 5/5 on the left. Peripheral pulses are 2+ radial. No peripheral edema is noted. Upper extremities are warm and dry to touch, equal in color and appearance. Shoulder shrug is strong and intact with some moderate tenderness with resistance on the right side, but no loss of strength. This is true with abduction of the shoulder to 90 degrees with no loss of strength, but with moderate pain in the base of the neck and shoulder radiating to the anterior deltoid and biceps on the right side with resistance only. Left side is negative. The patient's skin shows warm and dry, good turgor. No sores. Does have some eczema on the shoulders bilaterally. IMPRESSION: 1. This is a 43-year-old female with approximately 1-year history of increasing pain in base of the neck and right upper extremity in a radicular fashion following a C6-C7 dermatomal pattern. 2. MRI scan of cervical spine as noted. 3. History of chronic myelocytic leukemia with chemotherapy ongoing. PLAN: Options were discussed with the patient including continued physical therapies, medical management, interventional techniques and she has done physical therapy. She has tried multiple medications such as Advil, Tylenol and tramadol without significant reduction in pain. She has had chiropractic treatment as well but she would like to pursue interventional techniques. We discussed a cervical epidural steroid injection using description as well as anatomical models to describe the procedure. The patient will wait for preauthorization with insurance provider and we will have her return for cervical epidural steroid injection at the C6-C7 level to treat that clinical C6 radiculopathy on the right. The patient will continue doing stretching and strength exercises as she has been with her physical therapy instructions and will follow up once preauthorization is made, we will plan on translaminar approach at the C6-C7 level for a cervical epidural steroid injection at that time. In the meantime, we will try Medrol Dosepak. The patient was given instruction as well as side effects to be aware of with the medication and will follow up as scheduled. BRANDY ESTRADA MD DR: ELISABETH/delmer JOB#: [id number] / [id number] ANALI Tovar
== END | disposition home or self-care (01) ==
LOC: PNCL 10:15
PROVIDERS: ATTEND Anesthesiology
DX: M54.2 Cervicalgia (principal); M79.601 Pain in right arm; Z88.5 Allergy status to narcotic agent
CPT/HCPCS: G0463

== ENCOUNTER → 2019-06-09 | Outpatient (CLI) | payer OTHER ==
[2017-01-21 15:00] VITALS: BP 112/78
[~2019-06-09] MED LIST changes: -CETI10TA22 PO; +CETI10TA24 PO; +IOHEXOL 180 MG/ML 10 ML VIAL. ONE; +methylPREDNISolone ACETATE 40 MG/ML VIAL. ONE; +methylPREDNISolone ACETATE 80 MG/ML VIAL. ONE
--- NOTE | 2019-06-09 11:42 | PAIN ---
DATE OF SERVICE: 06/09/2019 PROGRESS NOTE FOR PAIN CLINIC DIAGNOSES: Cervical radiculopathy with cervical degenerative disk disease. HISTORY OF PRESENT ILLNESS: The patient is a 43-year-old female who returns for followup status post initial evaluation and preauthorization for cervical epidural steroid injection. The patient has obtained that and now would like to proceed, still pain in the base of neck and right upper extremity and shoulder as it was previously. The patient reports it is a 6 on a scale of 10 at its worst over the past week, 6 on average and 4 at its least and is a 6 today. The patient reports it is aching, sharp, dull, tight, shooting, on the right upper extremity as well, becoming more constant, worse with activity, reaching above her head with her right arm. The patient reports it awakens her from sleep about every 4-5 hours, especially if she lays on the right side. The patient reports no new motor or sensory deficits or other complaints. PHYSICAL EXAMINATION: VITAL SIGNS: The patient's blood pressure 111/65, pulse 74, respirations 18, temperature 97.4 degrees Fahrenheit, height is 5 feet 2 inches, weight is 171 pounds. GENERAL: The patient is awake, alert, oriented, appropriate, very pleasant demeanor. HEENT: Shows normocephalic, atraumatic. Extraocular movements are intact and symmetrical. Oral cavity: Mucous membranes are moist and pink. Dentition is intact. NECK: Shows anterior throat supple without palpable lymphadenopathy noted. Swallow reflex is symmetrical. CHEST: Shows normal on inspection. Breath sounds are clear to auscultation bilaterally. HEART: Shows S1, S2 clear. No murmurs auscultated. ABDOMEN: Soft, nontender, nondistended. No palpable organomegaly is noted. No rebound or guarding demonstrated. BACK: Shows spine grossly in the midline. Normal appearing thoracic kyphosis and some minor flattening of lumbar lordotic curvature. Cervical paraspinous muscle shows symmetrical on inspection, with palpation shows some moderate tenderness diffusely bilaterally, but only diffusely without significant radiation. The patient has good rotational motion of cervical spine, both laterally as well as extension and flexion without significant difficulty. EXTREMITIES: Upper extremities show deep tendon reflexes 2+ in the biceps and triceps tendons. Motor exam is strong with 5/5 manager of internal audit strength on the left and 4/5 on the right. Bicep and tricep flexion is likewise 4/5 on the right and 5/5 on the left. The patient's peripheral pulses are 2+ radial distribution. No peripheral edema is noted bilaterally. Options were discussed with the patient. The patient's old chart was reviewed as her current medication regimen updated. Current review of systems updated today as well. We will proceed with a cervical epidural steroid injection today with fluoroscopic guidance. Risks were again discussed including, but not limited to bleeding, infection, possibility of epidural hematoma, subsequent neurological compromise, dural puncture, headache, spinal cord and/or nerve damage, side effects of steroid medication and poor results regarding pain control. The patient understands and wished to proceed. The patient will return to clinic in approximately 2 weeks for followup. She was counseled on return appointment, activity level and side effects to be aware of. DIAGNOSES: Cervical radiculopathy with cervical degenerative disk disease. PROCEDURE: Cervical epidural steroid injection, translaminar approach C6-C7 level using C-arm fluoroscopic guidance under sterile prep and drape using local anesthetic. MEDICATION INJECTED: A total of 120 mg Depo-Medrol plus 5 mL of preservative-free normal saline and 2 mL of contrast. CONDITION AT DISCHARGE: Stable. The patient tolerated the procedure well, had no complications. BRANDY ESTRADA MD DR: ELISABETH/delmer JOB#: [id number] / [id number]
== END ==
LOC: PNCL 08:31
PROVIDERS: ATTEND Anesthesiology
DX: M50.123 Cervical disc disorder at C6-C7 level with radiculopathy (principal)
CPT/HCPCS: 62321; J1030; J1040; Q9965

== ENCOUNTER → 2019-06-23 | Outpatient (CLI) | payer OTHER ==
[2017-01-21 15:00] VITALS: BP 112/78
[~2019-06-23] MED LIST changes: -IOHEXOL 180 MG/ML 10 ML VIAL. ONE; -methylPREDNISolone ACETATE 40 MG/ML VIAL. ONE; -methylPREDNISolone ACETATE 80 MG/ML VIAL. ONE
--- NOTE | 2019-06-23 09:08 | PAIN ---
DATE OF SERVICE: 06/23/2019 PROGRESS NOTE FOR PAIN CLINIC DIAGNOSIS: Cervical radiculopathy with cervical degenerative disk disease. HISTORY OF PRESENT ILLNESS: The patient is a 43-year-old female who returns for followup status post cervical epidural steroid injection x 1. The patient reports about 75% improvement initially for the first few days, was decreased significantly and then about 50% improvement overall since the last 3 weeks ago. The patient reports the pain still decreased, but returning now very slightly in the right upper extremity, base of the neck and shoulder in the right arm, radiating into the anterior biceps, lateral deltoid into the forearm on the anterior aspect as well as into the hand and fingers with some numbness and tingling in the thumb on the right hand. The patient reports it is much better than it was, but still present. The patient reports it is 7 on a scale of 10 at its worst over the past week, 5 on average, 2 at its least and is a 5 today. The patient reports it is sharp, dull, tight, shooting, tingling, cramping, on and off in intensity, worse with activity, repetitive motions, weightbearing and lifting with the right arm, reaching over her head with her right hand. The patient reports no new motor or sensory deficit, but does awaken her from sleep about every 4 hours or so. The patient reports no new changes. No deficits. PHYSICAL EXAMINATION: VITAL SIGNS: The patient's blood pressure 114/65, pulse 62, respirations 18, temperature 97.8 degrees Fahrenheit, height is 5 feet 2 inches, weight is 165 pounds. GENERAL: The patient is awake, alert, oriented, appropriate, very pleasant demeanor. HEENT: Head shows normocephalic, atraumatic. Extraocular movements are intact and symmetrical. Oral cavity: Mucous membranes moist and pink. Dentition is intact. NECK: Shows anterior throat supple. CHEST: Shows normal on inspection. Breath sounds clear to auscultation bilaterally. HEART: Shows S1, S2 clear. ABDOMEN: Soft, nontender, nondistended. BACK: Shows spine grossly in the midline. Cervical paraspinous muscle shows symmetrical on inspection with normal cervical lordotic curvature with palpation shows some moderate tenderness diffusely in the inferior aspect of the cervical paraspinous musculature on the right more than the left in the superior medial and lateral trapezius as well, but without trigger points or radiation. The patient has full rotational motion of cervical spine, both laterally greater than 45 degrees right and left as well as full extension, full forward flexion without significant difficulty. EXTREMITIES: Upper extremities show deep tendon reflexes at 2+ in the biceps and triceps tendons. Motor exam is 4 on a scale of 5 on the right with shade classifier strength and 5/5 on the left. Peripheral pulses are 2+ radial bilaterally. No peripheral edema is noted. Options were discussed with the patient. The patient's old chart was reviewed as her current medication regimen updated. Current review of systems updated today as well. We will preauthorize the patient for a second cervical epidural steroid injection, is doing much better, still with a significant radiculopathy on the right side in a C6-C7 dermatomal distribution. We will plan on second cervical epidural steroid injection at the C6-C7 level, translaminar approach as the patient has done very well with this. In the meantime, she will continue with stretching and strengthening exercises, maintain activity as tolerated and return for cervical epidural steroid injection after approval. BRANDY ESTRADA MD DR: ELISABETH/delmer JOB#: [id number] / [id number]
== END | disposition home or self-care (01) ==
LOC: PNCL 08:36
PROVIDERS: ATTEND Anesthesiology
DX: M50.10 Cervical disc disorder with radiculopathy, unspecified cervical region (principal)
CPT/HCPCS: G0463

== ENCOUNTER → 2019-07-07 | Outpatient (CLI) | payer OTHER ==
[2017-01-21 15:00] VITALS: BP 112/78
[~2019-07-07] MED LIST changes: +IOHEXOL 180 MG/ML 10 ML VIAL. ONE; +methylPREDNISolone ACETATE 40 MG/ML VIAL. ONE; +methylPREDNISolone ACETATE 80 MG/ML VIAL. ONE
--- NOTE | 2019-07-07 13:43 | PAIN ---
DATE OF SERVICE: 07/07/2019 PROGRESS NOTE FOR PAIN CLINIC DIAGNOSES: Cervical radiculopathy with cervical degenerative disk disease. HISTORY OF PRESENT ILLNESS: The patient is a 43-year-old female who returns for followup status post cervical epidural steroid injection x 1. The patient reports about 50% improvement in the neck and right upper extremity. The patient reports doing much better, increased her activity with greater ease and comfort, doing household activities, work activities, driving with greater ease, using her right upper extremity without significant motor loss. The patient reports no new motor or sensory deficits. Still some significant pain in the base of neck and right upper extremity radiating to the right arm and the elbow and into the forearm. The patient reports it is 7 on a scale of 10 at its worst over the past week, 5 on average, 2 at its least and is a 2 today. The patient reports tingling and burning, at times sharp and dull, on and off in intensity, but not constant as it was. The patient reports it still awakens her from sleep about every 4 hours. PHYSICAL EXAMINATION: VITAL SIGNS: The patient's blood pressure 113/66, pulse 67, respirations 18, temperature 97.6 degrees Fahrenheit, height is 5 feet 2 inches, weight is 166 pounds. GENERAL: The patient is awake, alert, oriented, appropriate, very pleasant demeanor. HEENT: Shows normocephalic, atraumatic. Extraocular movements are intact and symmetrical. Oral cavity: Mucous membranes moist and pink. Dentition is intact. NECK: Shows anterior throat supple without palpable lymphadenopathy noted. Swallow reflex symmetrical. CHEST: Shows normal on inspection. Breath sounds are clear bilaterally. HEART: Shows S1, S2 clear. No murmurs auscultated. ABDOMEN: Soft, nontender, nondistended. BACK: Shows spine grossly in the midline. Cervical paraspinous muscle shows symmetrical on inspection, on palpation shows some [id number]-lj-llyrafxi tenderness in the inferior aspect of the cervical paraspinous musculature, but only diffusely without significant radiation. The patient shows full rotational motion of cervical spine, both laterally as well as extension and flexion without significant pain reported. EXTREMITIES: Upper extremities show deep tendon reflexes 2+ in the biceps and triceps tendons. Motor exam is approximately 4 on a scale of 5 with right hl7 developer strength and 5/5 on the left. Pulses are 2+ radial. No peripheral edema is noted bilaterally. Options were discussed with the patient. The patient's old chart was reviewed as her current medication regimen updated. Current review of systems updated today as well. We will proceed with a second in the series of cervical epidural steroid injection today with fluoroscopic guidance. Risks were again discussed including, but not limited to bleeding, infection, possibility of epidural hematoma, subsequent neurological compromise, dural puncture, headaches, spinal cord and/or nerve damage, side effects of steroid medication and poor results regarding pain control. The patient understands and wished to proceed. The patient will return to clinic in approximately 2 weeks for followup. She was counseled on return appointment, activity level and side effects to be aware of. DIAGNOSES: Cervical radiculopathy with cervical degenerative disk disease. PROCEDURE: Cervical epidural steroid injection, translaminar approach C6-C7 level using C-arm fluoroscopic guidance under sterile prep and drape using local anesthetic. MEDICATION INJECTED: A total of 120 mg Depo-Medrol plus 5 mL of preservative-free normal saline and 2 mL of contrast. CONDITION AT DISCHARGE: Stable. The patient tolerated the procedure well, had no complications. BRANDY ESTRADA MD DR: ELISABETH/delmer JOB#: [id number] / [id number]
== END ==
LOC: PNCL 08:58
PROVIDERS: ATTEND Anesthesiology
DX: M50.123 Cervical disc disorder at C6-C7 level with radiculopathy (principal)
CPT/HCPCS: 62321; J1030; J1040; Q9965

== ENCOUNTER → 2019-08-04 | Outpatient (CLI) | payer OTHER ==
[2017-01-21 15:00] VITALS: BP 112/78
[~2019-08-04] MED LIST changes: -IOHEXOL 180 MG/ML 10 ML VIAL. ONE; -methylPREDNISolone ACETATE 40 MG/ML VIAL. ONE; -methylPREDNISolone ACETATE 80 MG/ML VIAL. ONE
--- NOTE | 2019-08-04 09:26 | EKG ---
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
== END | disposition home or self-care (01) ==
LOC: EKG 09:11
PROVIDERS: ATTEND Internal Medicine Hematology & Oncology
DX: C92.10 Chronic myeloid leukemia, BCR/ABL-positive, not having achieved remission (principal)
CPT/HCPCS: 93005

== ENCOUNTER → 2019-09-16 | Outpatient (CLI) | payer OTHER ==
[2017-01-21 15:00] VITALS: BP 112/78
[~2019-09-16] MED LIST changes: +IOHEXOL 180 MG/ML 10 ML VIAL. ONE; +methylPREDNISolone ACETATE 40 MG/ML VIAL. ONE; +methylPREDNISolone ACETATE 80 MG/ML VIAL. ONE
--- NOTE | 2019-09-16 09:50 | PAIN ---
DATE OF SERVICE: 09/16/2019 PROGRESS NOTE FOR PAIN CLINIC DIAGNOSES: Cervical radiculopathy with cervical degenerative disk disease. HISTORY OF PRESENT ILLNESS: The patient is a 44-year-old female who returns for followup status post cervical epidural steroid injections x 2. The patient reports she did very well after the second injection with approximately 95% improvement for the first few weeks. The patient reports the pain is returning now in the base of the neck and right shoulder and arm, but initially she was doing very well. Reports that she has increased activity at home or work, doing all activities and travel with greater ease, household activities. The patient reports the pain is beginning to return now, not nearly to baseline, but still significant. The patient reported it is a 9 on a scale of 10 at its worst over the past week, 7 on average, 2 at its least and is a 2 today. The patient reports it is sharp and dull, tight, aching, and alternating in the neck with radiating pain in the right upper extremity as it was previously, mostly in the anterior forearm. The patient reports no loss of motor function, no new changes. PHYSICAL EXAMINATION: VITAL SIGNS: The patient's blood pressure 110/72, pulse 74, respirations 18, temperature is 98.3 degrees Fahrenheit, height is 5 feet 2 inches, weight is 169 pounds. GENERAL: The patient is awake, alert, oriented, appropriate, very pleasant demeanor. HEENT: Shows normocephalic, atraumatic. Extraocular movements are intact and symmetrical. Oral cavity: Mucous membranes moist and pink. Dentition is intact. NECK: Shows anterior throat supple without palpable lymphadenopathy noted. Swallow reflex symmetrical. CHEST: Shows normal on inspection. Breath sounds are clear bilaterally. HEART: Shows S1, S2 clear. No murmurs auscultated. ABDOMEN: Soft, nontender, nondistended. No palpable organomegaly is noted. No rebound or guarding demonstrated. BACK: Shows spine grossly in the midline. Cervical lordotic curvature is maintained as is thoracic kyphotic curvature. The patient's cervical paraspinous muscle shows symmetrical on inspection, on palpation shows some moderate tenderness diffusely bilaterally, but only diffusely without significant radiation. The patient has good rotational motion of the cervical spine, both laterally as well as extension and flexion without significant difficulty. EXTREMITIES: The patient's upper extremities show deep tendon reflexes 2+ in the biceps, triceps tendons. 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 Peripheral pulses are 2+ radial. No peripheral edema is noted bilaterally. Options were discussed with the patient. The patient's old chart was reviewed as her current medication regimen updated. Current review of systems updated today as well and we will proceed with a third in the series of cervical epidural steroid injection under fluoroscopic guidance. Risks were again discussed including, but not limited to bleeding, infection, possibility of epidural hematoma, subsequent neurological compromise, dural puncture, headaches, spinal cord and/or nerve damage, side effects of steroid medication and poor results regarding pain control. The patient understands and wished to proceed. The patient will return to clinic in approximately 2 weeks for followup. She was counseled on return appointment, activity level and side effects to be aware of. DIAGNOSES: Cervical radiculopathy with cervical degenerative disk disease. PROCEDURE: Cervical epidural steroid injection, translaminar approach C6-C7 level using C-arm fluoroscopic guidance under sterile prep and drape using local anesthetic. MEDICATION INJECTED: A total of 120 mg Depo-Medrol plus 5 mL preservative-free normal saline and 2 mL of contrast. CONDITION AT DISCHARGE: Stable. The patient tolerated the procedure well, had no complications. BRANDY ESTRADA MD DR: ELISABETH/delmer JOB#: [id number] / [id number]
== END ==
LOC: PNCL 07:55
PROVIDERS: ATTEND Anesthesiology
DX: M50.123 Cervical disc disorder at C6-C7 level with radiculopathy (principal)
CPT/HCPCS: 62321; J1030; J1040; Q9965

== ENCOUNTER → 2019-12-29 | Outpatient (CLI) | payer OTHER ==
[2017-01-21 15:00] VITALS: BP 112/78
[~2019-12-29] MED LIST changes: -CETI10TA24 PO; +CETI10TA74 PO; +ESTR-113 PO; -ESTR1TAB15 PO; +IBUP-1027 PO
--- NOTE | 2019-12-29 10:15 | PDOC ---
Progress Note - Pain Clinic Date of Service: DOS: DATE: 12/29/19 TIME: 10:10 Diagnosis: Dx: Cervical radiculopathy with cervical degenerative disc disease History or Present Illness: HPI: 4-year-old female returns follow-up status post cervical epidural straight injections x3. Patient reports 90% improvement after the last injection which was September 16, 2019 patient did very well for several weeks following the injection the pain began to return now we seen her for office visit and preauthorization with her insurance healthcare consultant which she is obtained now for additional injection and she would like to proceed with that we did try Medrol Dosepak which was not significantly decreasing the pain for long-term.. Patient rates pain as a 10 on scale 10 is worse with past week 8 on average 5 its least is a 5 today. Patient ports pain base the neck bilateral shoulders and the right upper extremity right arm mostly in the posterior deltoid and triceps as well as in the forearm and the hand with numbness and tingling patient which is aching and sharp in the arm and tight in the neck radiating coming more constant with activity. Patient ports no motor loss in the right upper extremity but significant fatigability with any repetitive motions or lifting items with the right hand. Physical Exam: VS: Blood pressure is 124/72 pulse 79 respirations are 20 temperature is 98.2 F weight is 180 pounds PE: PHYSICAL EXAMINATION: GENERAL: The patient is awake, alert, oriented, appropriate, very pleasant demeanor HEENT: Shows normocephalic, atraumatic. Extraocular movements are intact and symmetrical. Oral cavity: Mucous membranes moist and pink. NECK: Shows anterior throat supple without palpable lymphadenopathy noted. Swallow reflex symmetrical. CHEST: Shows normal on inspection. Breath sounds are clear bilaterally, no rales rhonchi or wheezes auscultated. HEART: Shows S1, S2 clear. No murmurs auscultated. ABDOMEN: Soft, nontender, nondistended. No palpable organomegaly is noted. No rebound or guarding demonstrated. BACK: Shows spine grossly in the midline. Normal-appearing cervical lordotic curvature, neck shows good rotation motion cervical spine with some moderate guarding right and left lateral rotation also with extension but not with fo rward flexion. Posterior cervical musculature shows symmetrical with palpation some moderate tenderness inferior aspect the cervical paraspinous musculature as well as the bilateral trapezius in the superior medial aspect more on the right than the left but without specific trigger points or radiation. There is slightly increased thoracic kyphosis, some minor flattening of the lumbar lordotic curvature. Lumbar paraspinous muscles show symmetrical on inspection. The patient has good rotational motion of the lumbar spine, both laterally as well as extension and flexion without significant difficulty. No tenderness over the spinous processes, sacrum or sacroiliac regions. EXTREMITIES: "Upper extremities show deep tendon reflexes 2+ in the biceps and tricep tendons. Motor exam is 4 on a scale of 5 with right care consultant strength bicep and triceps flexion and 5/5 on the left. Peripheral pulses are 2+ radial. No peripheral edema is noted bilaterally. upper extremities are warm and dry to touch, equal in color and appearance. SKIN: Shows warm and dry, good turgor. No edema. No sores, rashes or bruising throughout. Procedure: Procedure: Options were discussed with the patient. Patient will chart reviews her current medication regimen updated current review of systems updated today as well. We will proceed with a first in the series cervical epidural straight injection today with fluoroscopic guidance. Risks are discussed including but not limited to bleeding infection possibility of epidural hematoma subsequent neurological compromise dural puncture headache spinal cord and or nerve damage side effects of steroid medication and portal scarring pain control. Patient understands wished to proceed. Patient return to clinic in approximately 2 weeks for follow-up was counseled return appointment to level and side effects be aware. Medication Injected: Med Injected: Procedure cervical epidural steroid injection at the C6-7 level, using local anesthetic under sterile prep and drape using C-arm fluoroscopic guidance under local anesthesia medications injected ; 120 mg Depo-Medrol + 5 mL normal saline and 2 mL contrast; condition at discharge is stable patient tolerated procedure well. and had no complications Condition at Discharge: Condition at Discharge: Condition at discharge stable patient tolerated procedure well had no complications. BRANDY ESTRADA MD Dec 29, 2019 10:15
== END | disposition home or self-care (01) ==
LOC: PNCL 09:16
PROVIDERS: ATTEND Anesthesiology
DX: M50.123 Cervical disc disorder at C6-C7 level with radiculopathy (principal); Z79.899 Other long term (current) drug therapy
CPT/HCPCS: 62321; J1030; J1040; Q9965; 62323

== ENCOUNTER → 2020-02-03 | Outpatient (CLI) | payer OTHER ==
[2017-01-21 15:00] VITALS: BP 112/78
[~2020-02-03] MED LIST changes: -IOHEXOL 180 MG/ML 10 ML VIAL. ONE; -methylPREDNISolone ACETATE 40 MG/ML VIAL. ONE; -methylPREDNISolone ACETATE 80 MG/ML VIAL. ONE
--- NOTE | 2020-02-03 11:19 | EKG ---
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
--- NOTE | 2020-02-03 12:53 | CARD ---
MR#: [id number] Date of Study: 02/03/2020 Ordering Physician: LOS OROZCO, Referring Physician: LOS OROZCO, Tech: Antonella Diaz RDCS APPROVED REPORT EXAM: LIMITED Two-dimensional echocardiogram Other Information Quality : Good INDICATION LV Function:Systolic History of Leukemia 2D DIMENSIONS RVDd2.3 (2.9-3.5cm)Left Atrium(2D)3.3 (1.6-4.0cm) IVSd0.6 (0.7-1.1cm)Aortic Root(2D)2.8 (2.0-3.7cm) LVDd4.6 (3.9-5.9cm)LVOT Diameter2.0 (1.8-2.4cm) PWd0.8 (0.7-1.1cm)LVDs3.1 (2.5-4.0cm) FS (%) 32.7 %SV59.1 ml LVEF(%)61.2 (>50%) LEFT VENTRICLE The left ventricle is normal size. There is normal left ventricular wall thickness. The left ventricu lar systolic function is normal. The Ejection Fraction is 55-60%. GLS -22.7%. There is normal LV segm ental wall motion. MITRAL VALVE The mitral valve is normal in structure and function. TRICUSPID VALVE The tricuspid valve is normal in structure and function. GREAT VESSELS The aortic root is normal in size. The ascending aorta is normal in size. PERICARDIAL EFFUSION There is no evidence of significant pericardial effusion. Critical Notification Critical Value: No <Conclusion> The left ventricular systolic function is normal. The Ejection Fraction is 55-60%. GLS -22.7%. There is normal LV segmental wall motion. There is no evidence of significant pericardial effusion. Signed by : Ozzie Maloney, Electronically Approved : 02/03/2020 12:52:56
== END ==
LOC: ECHO 10:39
PROVIDERS: ATTEND Internal Medicine Hematology & Oncology
DX: C92.10 Chronic myeloid leukemia, BCR/ABL-positive, not having achieved remission (principal)
CPT/HCPCS: 93005; 93308

== ENCOUNTER → 2020-04-20 | Outpatient (CLI) | payer OTHER ==
[2017-01-21 15:00] VITALS: BP 112/78
[~2020-04-20] MED LIST changes: +IOHEXOL 180 MG/ML 10 ML VIAL. ONE; +methylPREDNISolone ACETATE 40 MG/ML VIAL. ONE; +methylPREDNISolone ACETATE 80 MG/ML VIAL. ONE
--- NOTE | 2020-04-20 08:54 | PDOC ---
Progress Note - Pain Clinic Date of Service: DOS: DATE: 04/20/20 TIME: 08:49 Diagnosis: Dx: Cervical radiculopathy with cervical degenerative disc disease History or Present Illness: HPI: 44-year-old female returns follow-up status post cervical epidurals injection x1. Patient reports 80 to 90% improvement after the last injection the pain returning down the base the neck and right greater than left upper extremity patient reports no new injuries or accident but to increase pain in the base the neck right upper extremity with radiation the posterior deltoid triceps into the forearm most significantly patient ports some mild pain and tingling in the hand as well on the right side only. Reports is aching and sharp in the neck tight in the neck as well tingling in the hand and arm on the right side and coming more constant with activity patient rates her pain as a 9 on scale 10 is worse over the past week 9 on average for its least it is a 9 today. Patient reports it wakes her from sleep about 4 to 5 hours but for the first 2 to 3 weeks she had no difficulty sleeping and the pain was significantly improved. Patient reports no new deficits or other complaints. Physical Exam: VS: Blood pressure is 110/70 pulse respirations 16 temperature 98.1 F weight is 186 pounds PE: PHYSICAL EXAMINATION: GENERAL: The patient is awake, alert, oriented, appropriate, very pleasant demeanor HEENT: Shows normocephalic, atraumatic. Extraocular movements are intact and symmetrical. Oral cavity: Mucous membranes moist and pink. NECK: Shows anterior throat supple without palpable lymphadenopathy noted. Swallow reflex symmetrical. CHEST: Shows normal on inspection. Breath sounds are clear bilaterally. HEART: Shows S1, S2 clear. No murmurs auscultated. ABDOMEN: Soft, nontender, nondistended, obese. No palpable organomegaly is noted. No rebound or guarding demonstrated. BACK: Shows spine grossly in the midline. Normal-appearing cervical lordotic curvature. Cervical paraspinous muscles show symmetrical inspection, with palpation shows moderate tenderness diffusely in the inferior aspect the cervical paraspinous musculature more on the right than the left without asymmetry without atrophy hypertrophy and without trigger points. Patient shows full rotation motion cervical spine both laterally as well as extension flexion without significant increase in pain. There is slightly increased thoracic kyphosis, some minor flattening of the lumbar lordotic curvature. EXTREMITIES: Upper extremities show deep tendon reflexes 2+ in the biceps and triceps tendons. Motor exam is 4 on a scale of 5 with right rib, biceps and tr icep flexion and 5/5 on the left. Peripheral pulses are 2+ radial. No peripheral edema is noted bilaterally. LUpper extremities are warm and dry to touch, equal in color and appearance. SKIN: Shows warm and dry, good turgor. No edema. No sores, rashes or bruising throughout. Procedure: Procedure: Options were discussed with the patient. Patient chart was reviewed as her current medication regimen updated current review of systems updated today as well. We will proceed with a second in a series cervical epidural steroid injection today with fluoroscopic guidance. Risks were discussed including but not limited to: Bleeding, infection, possibility of epidural hematoma and subsequent neurological compromise, dural puncture, headaches, spinal cord and/or nerve damage, side effects of steroid medication, and poor results regarding pain control. Patient understands wished to proceed. Patient return to clinic in approximate 2 weeks for follow-up, was counseled return appointment activity level and side effects to be aware of. Medication Injected: Med Injected: Procedure cervical epidural steroid injection at the C6-7 level, using local anesthetic under sterile prep and drape using C-arm fluoroscopic guidance under local anesthesia medications injected ; 120 mg Depo-Medrol + 5 mL normal saline and 2 mL contrast; condition at discharge is stable patient tolerated procedure well. and had no complications Condition at Discharge: Condition at Discharge: Patient condition at discharge is stable, patient tolerated procedure well and had no complications. BRANDY ESTRADA MD Apr 20, 2020 08:54
== END | disposition home or self-care (01) ==
LOC: PNCL 07:35
PROVIDERS: ATTEND Anesthesiology
DX: M50.123 Cervical disc disorder at C6-C7 level with radiculopathy (principal); D50.0 Iron deficiency anemia secondary to blood loss (chronic); F32.9 Major depressive disorder, single episode, unspecified; E66.9 Obesity, unspecified; M48.02 Spinal stenosis, cervical region; G47.30 Sleep apnea, unspecified; M19.90 Unspecified osteoarthritis, unspecified site; Z88.5 Allergy status to narcotic agent; Z79.899 Other long term (current) drug therapy; Z83.3 Family history of diabetes mellitus; Z90.710 Acquired absence of both cervix and uterus; Z68.28 Body mass index [BMI] 28.0-28.9, adult; Z82.49 Family history of ischemic heart disease and other diseases of the circulatory system
CPT/HCPCS: 62321; J1030; J1040; Q9965